=== PATIENT | male | born 1940 | race Caucasian/White ===

== ENCOUNTER → 2016-09-14 | Outpatient (REF) ==
[~2016-09-14] MED LIST: AMLOPIDINE; ASPIR-LOW81 MG PO; BENAZEPRIL; CIALIS20 MG PO; CIPRO 500MG TA500 MG PO; COLACE 100100 MG/CAP PO; DITROPAN 5MG TAB5 MG PO; GLUCOPHAGE500 MG PO; GLUCOSAMINE & C1 CA1 PO; HCTZ 25MG25 MG PO; INSULIN HUMA100 U/ML IJ; LASIX 40MG TABL40 MG PO; LEVAQUIN 750MG750 M1 PO; LEVOTHYROXINE0.05 M1 PO; LIPITOR 40MG TA40 MG PO; LOTENSIN40 MG PO; MOTRIN 600600 MG/TAB PO; NORCO 325 MG-51 TAB; NORVASC 10MG10 MG PO; OMEGA-3 FISH1200 MG PO; PERCOCET 325 MG1 TA2 PO; PROSCAR 5MG5 MG PO; PYRIDIUM 100MG100 MG; PYRIDIUM 100MG100 MG PO; SKELAXIN800 MG PO; SYNTHROID0.1 MG/TAB PO; VITAMIN B11000 MCG/M IM
== END ==
LOC: ZLAB.WCH 15:50
DX: Z01.89 Encounter for other specified special examinations (principal)

== ENCOUNTER → 2016-10-28 | Outpatient (REF) | LOC: ZLAB.WCH 10:10 | DX: Z01.89 Encounter for other specified special examinations (principal) ==

== ENCOUNTER → 2017-09-23 | Outpatient (REF) ==
[2017-09-23 19:18] LABS: THYROID STIMULATING HORMONE 1.84 uIU/mL (0.465-4.680)
== END ==
LOC: ZLAB.WCH 18:16
PROVIDERS: Family Medicine
DX: Z01.89 Encounter for other specified special examinations (principal)

== ENCOUNTER → 2017-09-29 | Outpatient (CLI) | payer MEDICARE, OTHER | LOC: COL.VAS 09-28 11:15 | DX: I08.0 Rheumatic disorders of both mitral and aortic valves (principal); I31.3 Pericardial effusion (noninflammatory) ==

== ENCOUNTER → 2018-01-26 | Outpatient (REF) | LOC: ZLAB.WCH 14:27 | DX: Z01.89 Encounter for other specified special examinations (principal) ==

== ENCOUNTER → 2018-04-06 | Outpatient (REF) ==
[2018-04-06 10:33] LABS: COLLECTION METHOD CATHETER
[2018-04-06 10:42] LABS: MUCOUS Present /lpf; PH 9 (5-8); SQUAMOUS EPITHELIAL None Seen /hpf; URINE APPEARANCE Hazy; URINE BACTERIA Rare /hpf; URINE BILIRUBIN Negative (NEGATIVE); URINE BLOOD 1+ (NEGATIVE); URINE COLOR Yellow; URINE GLUCOSE 2+ (NEGATIVE); URINE KETONE Negative (NEGATIVE); URINE LEUKOCYTE ESTERASE 3+ (NEGATIVE); URINE NITRATE Negative (NEGATIVE); URINE PROTEIN(semi-quant) 2+ (NEGATIVE); URINE UROBILINOGEN Negative (NEGATIVE); URINE WBC 20-50 /hpf
== END ==
LOC: ZLAB.STJ 10:32
PROVIDERS: Family Medicine
DX: Z01.89 Encounter for other specified special examinations (principal)

== ENCOUNTER → 2018-04-20 | Outpatient (CLI) | payer MEDICARE, OTHER ==
[2018-04-20 10:42] LABS: PH 9 (5-8); SQUAMOUS EPITHELIAL None Seen /hpf; URINE APPEARANCE Hazy; URINE BACTERIA None Seen /hpf; URINE BILIRUBIN Negative (NEGATIVE); URINE BLOOD 1+ (NEGATIVE); URINE COLOR Yellow; URINE GLUCOSE 3+ (NEGATIVE); URINE KETONE Negative (NEGATIVE); URINE LEUKOCYTE ESTERASE 2+ (NEGATIVE); URINE NITRATE Negative (NEGATIVE); URINE PROTEIN(semi-quant) 2+ (NEGATIVE); URINE UROBILINOGEN Negative (NEGATIVE); URINE WBC >50 /hpf
[2018-04-20 10:44] LABS: COLLECTION METHOD CLEAN CATCH
== END ==
LOC: ZLAB.WCH 10:13 → ZLAB.STJ 10:13
PROVIDERS: Family Medicine
DX: Z01.89 Encounter for other specified special examinations (principal)

== ENCOUNTER → 2018-04-22 | Outpatient (CLI) | payer MEDICARE, OTHER ==
[2018-04-22 17:49] LABS: COLLECTION METHOD CATHETER
[2018-04-22 17:59] LABS: BUDDING YEAST Present /hpf; PH 9 (5-8); SQUAMOUS EPITHELIAL 0-2 /hpf; URINE APPEARANCE Cloudy; URINE BACTERIA Rare /hpf; URINE BILIRUBIN Negative (NEGATIVE); URINE BLOOD 1+ (NEGATIVE); URINE COLOR Yellow; URINE GLUCOSE 3+ (NEGATIVE); URINE KETONE Negative (NEGATIVE); URINE LEUKOCYTE ESTERASE 3+ (NEGATIVE); URINE NITRATE Negative (NEGATIVE); URINE PROTEIN(semi-quant) 2+ (NEGATIVE); URINE UROBILINOGEN Negative (NEGATIVE); URINE WBC >50 /hpf
== END ==
LOC: ZLAB.STJ 17:28
PROVIDERS: Family Medicine
DX: Z99.2 Dependence on renal dialysis (principal)

== ENCOUNTER 2018-05-30 11:58 | Outpatient (CLI) | payer MEDICARE, OTHER ==
[2018-05-30] VITALS (7 sets, daily range): BP systolic 135–164; BP diastolic 54–67; PULSE 57–89; TEMP 97.9
[~2018-05-30] VITALS: Ht 175.4 cm; Wt 94.9 kg
[2018-05-30 13:46] LABS: INR 1.5 (0.8-3.0); PROTHROMBIN TIME 17.2 SECONDS (9.7-12.8)
[2018-05-30] MEDS ORDERED: COUMADIN 6MG6 MG/TAB PO (13:50)
[2018-05-30] MEDS ORDERED: PROTONIX40 MG/Pack PO (14:09)
[2018-05-30] MEDS ORDERED: TOPROL XL 25MG25 MG PO (14:10)
[2018-05-30] MEDS ORDERED: PHOS LO (14:16)
[2018-05-30] MEDS ORDERED: LEVEMIR FLEX100 U/ML SQ ×2 (14:16→14:17)
[2018-05-30] MEDS ORDERED: NOVOLOG FLEX100 U/ML SQ ×2 (14:18→14:19)
== END 2018-05-30 18:00 ==
LOC: COL.CAR 11:58
PROVIDERS: Specialist
DX: I87.1 Compression of vein (principal); I12.0 Hypertensive chronic kidney disease with stage 5 chronic kidney disease or end stage renal disease; E11.22 Type 2 diabetes mellitus with diabetic chronic kidney disease; N18.6 End stage renal disease; Z99.2 Dependence on renal dialysis; Z79.01 Long term (current) use of anticoagulants; Z86.73 Personal history of transient ischemic attack (TIA), and cerebral infarction without residual deficits
CPT/HCPCS: J2250; J3010; Q9967

== ENCOUNTER 2018-06-15 12:21 | Inpatient (IN) | payer MEDICARE, OTHER ==
[2018-06-15] VITALS (9 sets, daily range): BP systolic 117–140; BP diastolic 53–65; PULSE 67–83; TEMP 98.6
[~2018-06-15] VITALS: Ht 175.3 cm; Wt 92.0 kg
[~2018-06-15 12:21] MED LIST changes: +COUMADIN 6MG6 MG/TAB PO; +LEVEMIR FLEX100 U/ML SQ; +LOPRESSOR 225 MG/TAB PO; +NOVOLOG FLEX100 U/ML SQ; +PHOS LO; +PROTONIX40 MG/Pack PO
[2018-06-15 13:12] LABS: BASO % 0.4 % (0.0-2.0); EOS # 0.2 (0.0-0.7); GRAN # 5.5 (1.4-6.5); GRAN % 75.1 % (42.2-75.2); HEMOGLOBIN 11.3 g/dl (13.5-18.0); LYMPH # 0.9 (1.2-3.4); LYMPH % 12.5 % (20.0-51.0); MEAN CELL VOLUME 93 fl (80.0-100.0); MEAN CORPUSCULAR HEMOGLOBIN 31 pg (27.0-31.0); MEAN CORPUSCULAR HGB CONC 33 g/dl (33.0-37.0); MEAN PLATELET VOLUME 10.1 fl (7.4-10.4); MONO # 0.6 (0.1-0.6); MONO % 8.4 % (1.7-9.3); PLATELET COUNT 281 K/mm3 (130-400); REDCELL DISTRIBUTION WIDTH-CV 15.6 % (11.5-14.5)
[2018-06-15 13:15] LABS: HEMATOCRIT 34.3 % (42.0-52.0)
[2018-06-15 13:18] LABS: INR 1.8 (0.8-3.0); PROTHROMBIN TIME 20.2 SECONDS (9.7-12.8)
[2018-06-15 13:22] LABS: ALBUMIN 3.9 gm/dL (3.5-5.0); BILIRUBIN,TOTAL 0.6 mg/dL (0.0-1.0); POTASSIUM 3.7 mmol/L (3.4-5.0); TOTAL PROTEIN 7.5 gm/dL (6.4-8.2)
[2018-06-15 13:23] LABS: CREATININE, serum 7.39 mg/dL (0.66-1.25)
[2018-06-16 00:24] VITALS: BP 114/49; PULSE 64; TEMP 98.5
[2018-06-16 07:32] LABS: BASO % 0.3 % (0.0-2.0); EOS # 0.4 (0.0-0.7); EOS % 5.7 % (0-4.0); GRAN # 4.9 (1.4-6.5); GRAN % 77.9 % (42.2-75.2); LYMPH # 0.6 (1.2-3.4); LYMPH % 9.5 % (20.0-51.0); MEAN CELL VOLUME 96 fl (80.0-100.0); MEAN CORPUSCULAR HGB CONC 32 g/dl (33.0-37.0); MEAN PLATELET VOLUME 10.6 fl (7.4-10.4); MONO # 0.4 (0.1-0.6); PLATELET COUNT 245 K/mm3 (130-400); RED BLOOD COUNT 2.98 M/mm3 (4.20-5.60); REDCELL DISTRIBUTION WIDTH-CV 15.8 % (11.5-14.5)
[2018-06-16 07:38] LABS: HEMATOCRIT 28.5 % (42.0-52.0); HEMOGLOBIN 9.1 g/dl (13.5-18.0); MEAN CORPUSCULAR HEMOGLOBIN 31 pg (27.0-31.0)
[2018-06-16 07:55] VITALS: BP 105/45; PULSE 66; TEMP 97.6
[2018-06-16 08:03] LABS: CALCIUM 8.4 mg/dL (8.4-10.2); POTASSIUM 4.5 mmol/L (3.4-5.0)
[2018-06-16 08:10] LABS: CREATININE, serum 8.27 mg/dL (0.66-1.25)
[2018-06-16 08:33] LABS: THYROID STIMULATING HORMONE 3.28 uIU/mL (0.465-4.680)
[2018-06-16 12:21] VITALS: BP 96/66; PULSE 65; TEMP 97.6
[2018-06-16 16:47] VITALS: BP 95/46; PULSE 81; TEMP 98.2
[2018-06-16 19:09] VITALS: BP 115/86; PULSE 91; TEMP 97.6
[2018-06-17] VITALS (11 sets, daily range): BP systolic 125–156; BP diastolic 51–86; PULSE 82–103; TEMP 98–98.6
[2018-06-17 07:45] LABS: CALCIUM 8.6 mg/dL (8.4-10.2); POTASSIUM 4.3 mmol/L (3.4-5.0)
[2018-06-17 07:46] LABS: BASO % 0.4 % (0.0-2.0); EOS # 0.2 (0.0-0.7); EOS % 4.5 % (0-4.0); GRAN # 3.9 (1.4-6.5); GRAN % 73.2 % (42.2-75.2); LYMPH # 0.6 (1.2-3.4); LYMPH % 10.7 % (20.0-51.0); MEAN CELL VOLUME 98 fl (80.0-100.0); MEAN CORPUSCULAR HGB CONC 31 g/dl (33.0-37.0); MEAN PLATELET VOLUME 10.2 fl (7.4-10.4); MONO # 0.6 (0.1-0.6); MONO % 10.3 % (1.7-9.3); PLATELET COUNT 218 K/mm3 (130-400); RED BLOOD COUNT 2.54 M/mm3 (4.20-5.60); REDCELL DISTRIBUTION WIDTH-CV 16.2 % (11.5-14.5)
[2018-06-17 07:50] LABS: CREATININE, serum 6.13 mg/dL (0.66-1.25)
[2018-06-17 07:52] LABS: HEMATOCRIT 24.9 % (42.0-52.0); HEMOGLOBIN 7.7 g/dl (13.5-18.0); MEAN CORPUSCULAR HEMOGLOBIN 30 pg (27.0-31.0)
[2018-06-17 08:04] LABS: INR 4.3 (0.8-3.0)
[2018-06-17 08:12] LABS: PROTHROMBIN TIME 49.4 SECONDS (9.7-12.8)
[2018-06-18 04:06] VITALS: BP 132/58; PULSE 105; TEMP 100.1
[2018-06-18 08:01] VITALS: BP 139/58; PULSE 96; TEMP 98.6
[2018-06-18 08:06] LABS: BASO % 0.3 % (0.0-2.0); EOS # 0.2 (0.0-0.7); EOS % 3.5 % (0-4.0); GRAN # 4.9 (1.4-6.5); GRAN % 77.3 % (42.2-75.2); LYMPH # 0.5 (1.2-3.4); LYMPH % 8.1 % (20.0-51.0); MEAN CELL VOLUME 98 fl (80.0-100.0); MEAN CORPUSCULAR HGB CONC 31 g/dl (33.0-37.0); MEAN PLATELET VOLUME 10.3 fl (7.4-10.4); MONO # 0.6 (0.1-0.6); PLATELET COUNT 211 K/mm3 (130-400); RED BLOOD COUNT 2.35 M/mm3 (4.20-5.60); REDCELL DISTRIBUTION WIDTH-CV 16.4 % (11.5-14.5)
[2018-06-18 08:15] LABS: HEMOGLOBIN 7.2 g/dl (13.5-18.0); MEAN CORPUSCULAR HEMOGLOBIN 31 pg (27.0-31.0)
[2018-06-18 08:17] LABS: CALCIUM 8.6 mg/dL (8.4-10.2); POTASSIUM 4.4 mmol/L (3.4-5.0)
[2018-06-18 08:24] LABS: INR 2.4 (0.8-3.0); PROTHROMBIN TIME 27.3 SECONDS (9.7-12.8)
[2018-06-18 08:25] LABS: CREATININE, serum 7.91 mg/dL (0.66-1.25)
[2018-06-18 11:23] VITALS: BP 139/58; PULSE 96; TEMP 98.6
[2018-06-18] MEDS ORDERED: PERCOCET 325 MG1 TA2 PO (11:55)
== END 2018-06-18 12:30 | DRG 480 ==
LOC: COL.ER 12:21 → SURG 13:35
PROVIDERS: Emergency Medicine; Hospitalist; Nurse Practitioner Family; Orthopaedic Surgery
PROC: 0QH736Z Insertion of Intramedullary Internal Fixation Device into Left Upper Femur, Percutaneous Approach (ICD-10-PCS; principal; 2018-06-15 16:30)
PROC: 5A1D70Z Performance of Urinary Filtration, Intermittent, Less than 6 Hours Per Day (ICD-10-PCS; 2018-06-16)
DX: S72.142A Displaced intertrochanteric fracture of left femur, initial encounter for closed fracture (principal); N18.6 End stage renal disease; I12.0 Hypertensive chronic kidney disease with stage 5 chronic kidney disease or end stage renal disease; F05 Delirium due to known physiological condition; W18.30XA Fall on same level, unspecified, initial encounter; Z99.2 Dependence on renal dialysis; E78.5 Hyperlipidemia, unspecified; Z85.51 Personal history of malignant neoplasm of bladder; Z86.73 Personal history of transient ischemic attack (TIA), and cerebral infarction without residual deficits; E11.22 Type 2 diabetes mellitus with diabetic chronic kidney disease; Z79.4 Long term (current) use of insulin; D63.1 Anemia in chronic kidney disease; F03.90 Unspecified dementia, unspecified severity, without behavioral disturbance, psychotic disturbance, mood disturbance, and anxiety
CPT/HCPCS: 99222-AI; 99232-AI; 99239; A4314; A9284; C1713; J0690; J1815; J2250; J2270; J2704; J2795; J3010; J7070

== ENCOUNTER 2018-06-20 11:41 | Inpatient (IN) | payer MEDICARE, OTHER ==
[~2018-06-20] VITALS: Ht 175.3 cm; Wt 98.8 kg
[~2018-06-20 11:41] MED LIST changes: -LEXAPRO 10MG10 MG PO; -NORVASC2.5 MG PO
[2018-06-20 12:24] LABS: BASO % 0.4 % (0.0-2.0); EOS # 0.4 (0.0-0.7); EOS % 5.3 % (0-4.0); GRAN % 74.5 % (42.2-75.2); HEMATOCRIT 24.4 % (42.0-52.0); HEMOGLOBIN 7.8 g/dl (13.5-18.0); LYMPH # 0.7 (1.2-3.4); LYMPH % 8.8 % (20.0-51.0); MEAN CELL VOLUME 95 fl (80.0-100.0); MEAN CORPUSCULAR HEMOGLOBIN 30 pg (27.0-31.0); MEAN CORPUSCULAR HGB CONC 32 g/dl (33.0-37.0); MEAN PLATELET VOLUME 9.8 fl (7.4-10.4); MONO # 0.8 (0.1-0.6); MONO % 10.4 % (1.7-9.3); PLATELET COUNT 250 K/mm3 (130-400); RED BLOOD COUNT 2.57 M/mm3 (4.20-5.60); REDCELL DISTRIBUTION WIDTH-CV 16.4 % (11.5-14.5)
[2018-06-20 12:31] LABS: PARTIAL THROMBOPLASTIN TIME 46.6 SECONDS (26.0-37.0)
[2018-06-20 12:34] LABS: PROTHROMBIN TIME 34.4 SECONDS (9.7-12.8)
[2018-06-20 12:35] LABS: ALANINE AMINOTRANSFERASE 15 U/L (21-72); ALBUMIN 3.2 gm/dL (3.5-5.0); ALKALINE PHOSPHATASE 113 U/L (50-136); ANION GAP 9 mmol/L (7-16); AST,SGOT 27 U/L (15-37); BILIRUBIN,TOTAL 0.4 mg/dL (0.0-1.0); BLOOD UREA NITROGEN 77 mg/dL (9-20); CALCIUM 9.2 mg/dL (8.4-10.2); CARBON DIOXIDE 25 mmol/L (22-30); CHLORIDE 100 mmol/L (98-107); GLUCOSE 55 mg/dL (74-106); POTASSIUM 4.6 mmol/L (3.4-5.0); SODIUM 134 mmol/L (137-145); TOTAL PROTEIN 6.6 gm/dL (6.4-8.2)
[2018-06-20 12:39] LABS: ACETAMINOPHEN < 10 ug/mL (10-30); CREATININE, serum 11.11 mg/dL (0.66-1.25); SALICYLATE < 1.0 mg/dL
[2018-06-20] MEDS ORDERED: NORVASC 10MG10 MG PO (14:51)
[2018-06-20 19:14] VITALS: BP 140/60; PULSE 76; TEMP 97.9
[2018-06-20 22:35] VITALS: BP 124/57; PULSE 81; TEMP 98.1
[2018-06-21 05:37] VITALS: BP 147/80; PULSE 74; TEMP 98.2
[2018-06-21 08:00] VITALS: BP 148/55; PULSE 86; TEMP 99
[2018-06-21 08:17] LABS: BASO % 0.5 % (0.0-2.0); EOS # 0.3 (0.0-0.7); EOS % 4.9 % (0-4.0); GRAN # 4.1 (1.4-6.5); GRAN % 69.3 % (42.2-75.2); LYMPH # 0.7 (1.2-3.4); LYMPH % 11.1 % (20.0-51.0); MEAN CELL VOLUME 97 fl (80.0-100.0); MEAN CORPUSCULAR HGB CONC 32 g/dl (33.0-37.0); MEAN PLATELET VOLUME 9.7 fl (7.4-10.4); MONO # 0.8 (0.1-0.6); MONO % 13.3 % (1.7-9.3); PLATELET COUNT 245 K/mm3 (130-400); RED BLOOD COUNT 2.55 M/mm3 (4.20-5.60); REDCELL DISTRIBUTION WIDTH-CV 16.3 % (11.5-14.5)
[2018-06-21 08:20] LABS: HEMATOCRIT 24.8 % (42.0-52.0); HEMOGLOBIN 7.8 g/dl (13.5-18.0); MEAN CORPUSCULAR HEMOGLOBIN 31 pg (27.0-31.0)
[2018-06-21 08:24] LABS: INR 2.9 (0.8-3.0); PROTHROMBIN TIME 33.5 SECONDS (9.7-12.8)
[2018-06-21 08:25] LABS: ALBUMIN 3.2 gm/dL (3.5-5.0); CALCIUM 8.8 mg/dL (8.4-10.2); PHOSPHOROUS 5.1 mg/dL (2.5-4.5); POTASSIUM 4.9 mmol/L (3.4-5.0)
[2018-06-21 08:26] LABS: CREATININE, serum 7.31 mg/dL (0.66-1.25)
[2018-06-21 12:53] VITALS: BP 131/56; PULSE 76; TEMP 97.8
[2018-06-21 15:45] VITALS: BP 127/52; PULSE 76; TEMP 98
[2018-06-21 19:36] VITALS: BP 156/61; PULSE 80; TEMP 98.3
[2018-06-22 04:51] VITALS: BP 128/53; PULSE 70; TEMP 97.6
[2018-06-22 06:52] LABS: INR 3.6 (0.8-3.0); PROTHROMBIN TIME 41.4 SECONDS (9.7-12.8)
[2018-06-22 06:56] LABS: BASO % 0.5 % (0.0-2.0); EOS # 0.4 (0.0-0.7); EOS % 6.2 % (0-4.0); GRAN # 4.3 (1.4-6.5); GRAN % 67.9 % (42.2-75.2); LYMPH # 0.8 (1.2-3.4); LYMPH % 12.8 % (20.0-51.0); MEAN CELL VOLUME 97 fl (80.0-100.0); MEAN CORPUSCULAR HGB CONC 32 g/dl (33.0-37.0); MEAN PLATELET VOLUME 9.9 fl (7.4-10.4); MONO # 0.8 (0.1-0.6); PLATELET COUNT 294 K/mm3 (130-400); RED BLOOD COUNT 2.56 M/mm3 (4.20-5.60); REDCELL DISTRIBUTION WIDTH-CV 16.1 % (11.5-14.5)
[2018-06-22 06:58] LABS: HEMATOCRIT 24.8 % (42.0-52.0); HEMOGLOBIN 7.8 g/dl (13.5-18.0); MEAN CORPUSCULAR HEMOGLOBIN 30 pg (27.0-31.0)
[2018-06-22 07:21] VITALS: BP 139/53; PULSE 72; TEMP 97.9
[2018-06-22 07:22] LABS: ALBUMIN 3.3 gm/dL (3.5-5.0); CALCIUM 9.6 mg/dL (8.4-10.2); PHOSPHOROUS 6.2 mg/dL (2.5-4.5); POTASSIUM 5.1 mmol/L (3.4-5.0)
[2018-06-22 07:30] LABS: CREATININE, serum 8.51 mg/dL (0.66-1.25)
[2018-06-22 11:28] VITALS: BP 125/58; PULSE 89
[2018-06-22 17:19] VITALS: BP 132/55; PULSE 82; TEMP 97.7
[2018-06-22 20:37] VITALS: BP 133/54; PULSE 82; TEMP 97.9
[2018-06-22 23:22] VITALS: BP 135/57; PULSE 75; TEMP 98.1
[2018-06-23 04:06] VITALS: BP 140/68; PULSE 81; TEMP 97.7
[2018-06-23 06:11] LABS: BASO % 0.5 % (0.0-2.0); EOS # 0.4 (0.0-0.7); EOS % 5.8 % (0-4.0); GRAN # 4.1 (1.4-6.5); GRAN % 67.5 % (42.2-75.2); LYMPH # 0.9 (1.2-3.4); LYMPH % 14.6 % (20.0-51.0); MEAN CELL VOLUME 98 fl (80.0-100.0); MEAN CORPUSCULAR HGB CONC 31 g/dl (33.0-37.0); MEAN PLATELET VOLUME 9.8 fl (7.4-10.4); MONO # 0.7 (0.1-0.6); MONO % 11.1 % (1.7-9.3); PLATELET COUNT 284 K/mm3 (130-400); RED BLOOD COUNT 2.38 M/mm3 (4.20-5.60); REDCELL DISTRIBUTION WIDTH-CV 15.9 % (11.5-14.5)
[2018-06-23 06:21] LABS: HEMATOCRIT 23.3 % (42.0-52.0); HEMOGLOBIN 7.2 g/dl (13.5-18.0); MEAN CORPUSCULAR HEMOGLOBIN 30 pg (27.0-31.0)
[2018-06-23 06:28] LABS: ALBUMIN 3.2 gm/dL (3.5-5.0); CALCIUM 9.2 mg/dL (8.4-10.2); PHOSPHOROUS 4.9 mg/dL (2.5-4.5); POTASSIUM 4.6 mmol/L (3.4-5.0)
[2018-06-23 06:30] LABS: INR 5.1 (0.8-3.0); PROTHROMBIN TIME 58.2 SECONDS (9.7-12.8)
[2018-06-23 06:55] LABS: CREATININE, serum 6.34 mg/dL (0.66-1.25)
[2018-06-23 07:05] VITALS: BP 136/55; PULSE 78; TEMP 97.5
[2018-06-23 11:14] VITALS: BP 116/47; PULSE 74; TEMP 98.2
[2018-06-23 15:11] VITALS: BP 122/43; PULSE 72; TEMP 97.7
[2018-06-23 19:23] VITALS: BP 156/72; PULSE 76; TEMP 97.6
[2018-06-23 23:32] VITALS: BP 149/55; PULSE 67; TEMP 97.9
[2018-06-24 03:22] VITALS: BP 165/53; PULSE 71; TEMP 98.3
[2018-06-24 08:00] VITALS: BP 117/40; PULSE 71; TEMP 97.8
[2018-06-24 08:43] LABS: BASO % 0.4 % (0.0-2.0); EOS # 0.4 (0.0-0.7); EOS % 5.1 % (0-4.0); GRAN # 5.4 (1.4-6.5); GRAN % 74.2 % (42.2-75.2); LYMPH # 0.9 (1.2-3.4); MEAN CELL VOLUME 96 fl (80.0-100.0); MEAN CORPUSCULAR HGB CONC 32 g/dl (33.0-37.0); MEAN PLATELET VOLUME 9.6 fl (7.4-10.4); MONO # 0.6 (0.1-0.6); MONO % 7.9 % (1.7-9.3); PLATELET COUNT 296 K/mm3 (130-400); RED BLOOD COUNT 2.43 M/mm3 (4.20-5.60); REDCELL DISTRIBUTION WIDTH-CV 15.6 % (11.5-14.5)
[2018-06-24 08:45] LABS: HEMATOCRIT 23.4 % (42.0-52.0); HEMOGLOBIN 7.4 g/dl (13.5-18.0); MEAN CORPUSCULAR HEMOGLOBIN 30 pg (27.0-31.0)
[2018-06-24 08:52] LABS: ALBUMIN 3.1 gm/dL (3.5-5.0); CALCIUM 9.1 mg/dL (8.4-10.2); PHOSPHOROUS 5.9 mg/dL (2.5-4.5); POTASSIUM 5.4 mmol/L (3.4-5.0)
[2018-06-24 09:13] LABS: CREATININE, serum 8.53 mg/dL (0.66-1.25)
[2018-06-24 09:23] LABS: PROTHROMBIN TIME 62.4 SECONDS (9.7-12.8)
[2018-06-24 09:24] LABS: INR 5.5 (0.8-3.0)
[2018-06-24 12:24] VITALS: BP 135/51; PULSE 91; TEMP 98.2
[2018-06-24 15:57] VITALS: BP 129/49; PULSE 56; TEMP 98.6
[2018-06-24 18:55] VITALS: BP 131/52; PULSE 85; TEMP 98.3
[2018-06-24 23:47] VITALS: BP 112/48; PULSE 78
[2018-06-25 04:10] VITALS: BP 151/57; PULSE 58; TEMP 98.6
[2018-06-25 06:58] LABS: BASO % 0.5 % (0.0-2.0); EOS # 0.4 (0.0-0.7); EOS % 6.6 % (0-4.0); GRAN % 67.9 % (42.2-75.2); LYMPH # 0.9 (1.2-3.4); LYMPH % 15.1 % (20.0-51.0); MEAN CELL VOLUME 98 fl (80.0-100.0); MEAN CORPUSCULAR HGB CONC 31 g/dl (33.0-37.0); MEAN PLATELET VOLUME 9.3 fl (7.4-10.4); MONO # 0.5 (0.1-0.6); MONO % 9.2 % (1.7-9.3); PLATELET COUNT 295 K/mm3 (130-400); RED BLOOD COUNT 2.49 M/mm3 (4.20-5.60); REDCELL DISTRIBUTION WIDTH-CV 15.6 % (11.5-14.5)
[2018-06-25 06:59] LABS: HEMATOCRIT 24.4 % (42.0-52.0); HEMOGLOBIN 7.5 g/dl (13.5-18.0); MEAN CORPUSCULAR HEMOGLOBIN 30 pg (27.0-31.0)
[2018-06-25 07:09] LABS: INR 4.2 (0.8-3.0)
[2018-06-25 07:23] LABS: ALBUMIN 3.2 gm/dL (3.5-5.0); CALCIUM 9.2 mg/dL (8.4-10.2); PHOSPHOROUS 4.2 mg/dL (2.5-4.5)
[2018-06-25 07:26] LABS: CREATININE, serum 6.34 mg/dL (0.66-1.25)
[2018-06-25 07:32] VITALS: BP 147/52; PULSE 72; TEMP 98.2
[2018-06-25 07:59] LABS: PROTHROMBIN TIME 48.3 SECONDS (9.7-12.8)
[2018-06-25 11:49] VITALS: BP 138/49; PULSE 68; TEMP 98.2
[2018-06-25 16:12] VITALS: BP 135/47; PULSE 71; TEMP 98.3
[2018-06-25 22:45] VITALS: BP 153/57; PULSE 78; TEMP 98.4
[2018-06-26] VITALS (10 sets, daily range): BP systolic 102–141; BP diastolic 35–61; PULSE 66–73; TEMP 98.6–98.8
[2018-06-26 07:24] LABS: BASO % 0.4 % (0.0-2.0); EOS # 0.4 (0.0-0.7); EOS % 5.5 % (0-4.0); GRAN # 6.1 (1.4-6.5); GRAN % 76.4 % (42.2-75.2); LYMPH # 0.8 (1.2-3.4); LYMPH % 9.4 % (20.0-51.0); MEAN CORPUSCULAR HGB CONC 32 g/dl (33.0-37.0); MEAN PLATELET VOLUME 9.4 fl (7.4-10.4); MONO # 0.6 (0.1-0.6); MONO % 7.9 % (1.7-9.3); PLATELET COUNT 360 K/mm3 (130-400); RED BLOOD COUNT 2.58 M/mm3 (4.20-5.60); REDCELL DISTRIBUTION WIDTH-CV 15.7 % (11.5-14.5)
[2018-06-26 07:26] LABS: HEMATOCRIT 24.1 % (42.0-52.0); HEMOGLOBIN 7.8 g/dl (13.5-18.0); MEAN CELL VOLUME 93 fl (80.0-100.0); MEAN CORPUSCULAR HEMOGLOBIN 30 pg (27.0-31.0)
[2018-06-26 07:47] LABS: INR 3.6 (0.8-3.0); PROTHROMBIN TIME 40.7 SECONDS (9.7-12.8)
[2018-06-26 07:48] LABS: ALBUMIN 3.5 gm/dL (3.5-5.0); POTASSIUM 5.3 mmol/L (3.4-5.0)
[2018-06-26 07:53] LABS: CREATININE, serum 8.15 mg/dL (0.66-1.25)
[2018-06-26] MEDS ORDERED: NORVASC2.5 MG PO (12:04)
[2018-06-26] MEDS ORDERED: COUMADIN 6MG6 MG/TAB PO (12:04)
[2018-06-26] MEDS ORDERED: LEXAPRO 10MG10 MG PO (12:05)
== END 2018-06-26 15:33 | DRG 947 ==
LOC: COL.ER 11:41 → ICU 13:52 → MEDICAL 13:52
PROVIDERS: Internal Medicine Nephrology; Nurse Practitioner
PROC: 5A1D70Z Performance of Urinary Filtration, Intermittent, Less than 6 Hours Per Day (ICD-10-PCS; principal; 2018-06-20)
PROC: 5A1D70Z Performance of Urinary Filtration, Intermittent, Less than 6 Hours Per Day (ICD-10-PCS; 2018-06-22)
PROC: 5A1D70Z Performance of Urinary Filtration, Intermittent, Less than 6 Hours Per Day (ICD-10-PCS; 2018-06-24)
PROC: 5A1D70Z Performance of Urinary Filtration, Intermittent, Less than 6 Hours Per Day (ICD-10-PCS; 2018-06-25)
PROC: 5A1D70Z Performance of Urinary Filtration, Intermittent, Less than 6 Hours Per Day (ICD-10-PCS; 2018-06-26)
DX: R41.82 Altered mental status, unspecified (principal); N18.6 End stage renal disease; I12.0 Hypertensive chronic kidney disease with stage 5 chronic kidney disease or end stage renal disease; T40.2X5A Adverse effect of other opioids, initial encounter; I95.9 Hypotension, unspecified; E11.22 Type 2 diabetes mellitus with diabetic chronic kidney disease; Z99.2 Dependence on renal dialysis; E78.5 Hyperlipidemia, unspecified; Z79.01 Long term (current) use of anticoagulants; D64.9 Anemia, unspecified; I95.3 Hypotension of hemodialysis; S72.142D Displaced intertrochanteric fracture of left femur, subsequent encounter for closed fracture with routine healing; F32.9 Major depressive disorder, single episode, unspecified; Z79.4 Long term (current) use of insulin
CPT/HCPCS: J1815; P9016

== ENCOUNTER → 2018-06-20 | Outpatient (CLI) | payer MEDICARE, OTHER ==
[~2018-06-20] MED LIST changes: +LEXAPRO 10MG10 MG PO; +NORVASC2.5 MG PO
[2018-06-20 10:02] LABS: BASO % 0.4 % (0.0-2.0); EOS # 0.4 (0.0-0.7); EOS % 5.8 % (0-4.0); GRAN # 5.3 (1.4-6.5); LYMPH # 0.6 (1.2-3.4); LYMPH % 8.3 % (20.0-51.0); MEAN CELL VOLUME 96 fl (80.0-100.0); MEAN CORPUSCULAR HGB CONC 32 g/dl (33.0-37.0); MEAN PLATELET VOLUME 10.5 fl (7.4-10.4); MONO # 0.7 (0.1-0.6); MONO % 9.7 % (1.7-9.3); PLATELET COUNT 252 K/mm3 (130-400); RED BLOOD COUNT 2.45 M/mm3 (4.20-5.60); REDCELL DISTRIBUTION WIDTH-CV 16.4 % (11.5-14.5)
[2018-06-20 10:04] LABS: HEMATOCRIT 23.4 % (42.0-52.0); HEMOGLOBIN 7.5 g/dl (13.5-18.0); MEAN CORPUSCULAR HEMOGLOBIN 31 pg (27.0-31.0)
[2018-06-20 10:16] LABS: INR 2.9 (0.8-3.0); PROTHROMBIN TIME 33.1 SECONDS (9.7-12.8)
== END ==
LOC: ZCOL.LAB 09:48
PROVIDERS: Family Medicine
DX: I63.9 Cerebral infarction, unspecified (principal); E11.22 Type 2 diabetes mellitus with diabetic chronic kidney disease

== ENCOUNTER → 2018-07-31 | Outpatient (REF) ==
[~2018-07-31] MED LIST changes: +LEXAPRO 10MG10 MG PO; +NORVASC2.5 MG PO
== END ==
LOC: ZLAB.STJ 15:21
DX: R79.1 Abnormal coagulation profile (principal)

== ENCOUNTER → 2018-09-08 | Outpatient (CLI) | payer MEDICARE, OTHER | LOC: ZLAB.STJ 10:35 | DX: E03.9 Hypothyroidism, unspecified (principal) ==

== ENCOUNTER 2019-01-25 20:39 | Inpatient (IN) | payer MEDICARE, OTHER ==
[~2019-01-25] VITALS: Ht 172.7 cm; Wt 94.5 kg
[2019-01-25 23:09] VITALS: BP 161/74; PULSE 71; TEMP 98.3
--- NOTE | 2019-01-25 23:09 | NUR ---
RECIEVED PATIENT FROM ED PER CART FOR FRACTURED RT HIP. IS ALERT. SPOUSE AT BEDSIDE. MOVED FROM CART TO BED WITH 4 ASSIST AND SLIDE BOARD. REPORTS PAIN AND CRAMPING TO RIGHT LEG. HAS SL TO RIGHT WRIST WITHOUT REDNESS OR SWELLING. HAS RIGHT CHEST VASCATH AND LEFT FOREARM AV FISTULA. PATIENT IS FORGETFUL, DOES NOT KNOW WHERE HE IS, REORIENTS TEMPORARILY. BEDRAILS UP X3, BED ALARM ON.
--- NOTE | 2019-01-25 23:25 | NUR ---
INSERTED #16FR SUAREZ CATHETER AND PLACED TO BSD. IMMEDIATE RETURN OF YELLOW URINE. UA SENT TO LAB. HAS PURPLE BRUISE TO RIGHT ELBOW. ADMISSION QUESTIONS REVIEWED WITH SPOUSE. PATIENT REPORTS PAIN 6/10 TO RT LEG.
[2019-01-25] MEDS ORDERED: DIALYVITE 8001 TAB PO (23:56)
[2019-01-25] MEDS ORDERED: PROTONIX 40MG T40 MG PO (23:57)
[2019-01-25] MEDS ORDERED: VITAMIN C500 MG PO (23:57)
[2019-01-25] MEDS ORDERED: VELPHORO PO (23:58)
[2019-01-26] VITALS (10 sets, daily range): BP systolic 112–161; BP diastolic 52–74; PULSE 16–76; TEMP 97.5–98.3
[2019-01-26] MEDS ORDERED: COLACE 100100 MG/CAP PO
[2019-01-26] MEDS ORDERED: PERCOCET 325 MG1 TA2 PO
[2019-01-26] MEDS ORDERED: MIRALAX PA17 GM/Dose PO (00:01)
[2019-01-26] MEDS ORDERED: COUMADIN 6MG6 MG/TAB PO (00:03)
[2019-01-26] MEDS ORDERED: COUMADIN 3MG3 MG/TAB PO (00:03)
[2019-01-26 00:10] LABS: BASO % 0.4 % (0.0-2.0); EOS # 0.4 (0.0-0.7); EOS % 4.1 % (0-4.0); GRAN # 6.9 (1.4-6.5); GRAN % 76.1 % (42.2-75.2); HEMOGLOBIN 10.5 g/dl (13.5-18.0); MEAN CELL VOLUME 102 fl (80.0-100.0); MEAN CORPUSCULAR HEMOGLOBIN 32 pg (27.0-31.0); MEAN CORPUSCULAR HGB CONC 31 g/dl (33.0-37.0); MEAN PLATELET VOLUME 10.4 fl (7.4-10.4); MONO # 0.7 (0.1-0.6); MONO % 7.8 % (1.7-9.3); PLATELET COUNT 189 K/mm3 (130-400); RED BLOOD COUNT 3.31 M/mm3 (4.20-5.60); REDCELL DISTRIBUTION WIDTH-CV 15.2 % (11.5-14.5)
[2019-01-26 00:11] LABS: HEMATOCRIT 33.9 % (42.0-52.0)
[2019-01-26 00:12] LABS: INR 1.3 (0.8-3.0); PROTHROMBIN TIME 14.3 SECONDS (9.7-12.8)
[2019-01-26 00:17] LABS: ALBUMIN 3.6 gm/dL (3.5-5.0); BILIRUBIN,TOTAL 0.3 mg/dL (0.0-1.0); CALCIUM 9.1 mg/dL (8.4-10.2); POTASSIUM 4.7 mmol/L (3.4-5.0); TOTAL PROTEIN 6.8 gm/dL (6.4-8.2)
[2019-01-26 00:18] LABS: CREATININE, serum 6.79 (0.66-1.25)
[2019-01-26 00:24] LABS: PRE ALBUMIN 34.2 mg/dL (17.6-36.0)
--- NOTE | 2019-01-26 01:00 | NUR ---
MEDICATED WITH MORPHINE 4MG IV FOR PAIN TO RIGHT HIP. PLACED THIGH HIGH CHRISSIE AND SCD TO LEFT LEG. RT LEG ELEVATED ON A PILLOW. DR LAL WAS IN TO SEE PATIENT AT 0030.
[2019-01-26 01:06] LABS: COLLECTION METHOD CLEAN CATCH
[2019-01-26 01:33] LABS: PH 7 (5-8); SQUAMOUS EPITHELIAL None Seen /hpf; URINE APPEARANCE Hazy; URINE BACTERIA None Seen /hpf; URINE BILIRUBIN Negative (NEGATIVE); URINE BLOOD 1+ (NEGATIVE); URINE COLOR Yellow; URINE GLUCOSE 3+ (NEGATIVE); URINE KETONE Negative (NEGATIVE); URINE LEUKOCYTE ESTERASE Negative (NEGATIVE); URINE NITRATE Negative (NEGATIVE); URINE PROTEIN(semi-quant) 2+ (NEGATIVE); URINE RBC 20-50 /hpf; URINE UROBILINOGEN Negative (NEGATIVE)
--- NOTE | 2019-01-26 03:04 | NUR ---
Patient resting well after IV Morphine.
--- NOTE | 2019-01-26 05:50 | NUR ---
Complains of right hip pain 6/10 with movement. IV Morphine 4mg given at this time. Is alert to self, unsure of place and time, reorients easily. Sanchez drains well this shift.
[2019-01-26 06:02] LABS: BASO % 0.1 % (0.0-2.0); EOS # 0.3 (0.0-0.7); EOS % 4.9 % (0-4.0); GRAN # 4.7 (1.4-6.5); GRAN % 67.4 % (42.2-75.2); LYMPH # 1.1 (1.2-3.4); LYMPH % 15.8 % (20.0-51.0); MEAN CELL VOLUME 100 fl (80.0-100.0); MEAN CORPUSCULAR HGB CONC 32 g/dl (33.0-37.0); MEAN PLATELET VOLUME 10.4 fl (7.4-10.4); MONO # 0.8 (0.1-0.6); MONO % 11.1 % (1.7-9.3); PLATELET COUNT 167 K/mm3 (130-400); RED BLOOD COUNT 3.11 M/mm3 (4.20-5.60); REDCELL DISTRIBUTION WIDTH-CV 15.1 % (11.5-14.5)
[2019-01-26 06:05] LABS: HEMATOCRIT 31.2 % (42.0-52.0); HEMOGLOBIN 9.9 g/dl (13.5-18.0); MEAN CORPUSCULAR HEMOGLOBIN 32 pg (27.0-31.0)
[2019-01-26 06:15] LABS: CALCIUM 9.1 mg/dL (8.4-10.2); POTASSIUM 5.2 mmol/L (3.4-5.0)
[2019-01-26 06:20] LABS: CREATININE, serum 7.25 (0.66-1.25)
--- NOTE | 2019-01-26 07:04 | NUR ---
Report from Rebeca SANDS.
--- NOTE | 2019-01-26 07:06 | NUR ---
bedside report to Julian SANDS
--- NOTE | 2019-01-26 10:33 | NUR ---
PT TO CT FOR RIGHT HIP. RETURNED TO ROOM. PT TO DIALYSIS @ 1130.
--- NOTE | 2019-01-26 12:44 | NUR ---
PT TO DIALYSIS AT THIS TIME.
--- NOTE | 2019-01-26 15:26 | NUR ---
SWAPNIL met with the patient's , Kathy to discuss a discharge plans; the patient was in dialysis. The patient lives at [facility]. The patient receives full care at [facility]. The patient has advanced directives in the EMR, but does not have a DPOA-HC. Kathy requested a DPOA-HC form. SWAPNIL provided the form to the patient. Afton states the patient want to return to [facility] upon discharge. Mani signed the patient choice form. A copy was provided to the patient and the original was placed in the chart. SWAPNIL sent updates to Adriel at [facility]. SWAPNIL will continue to follow.
[2019-01-26 15:45] LABS: CALCIUM 8.7 mg/dL (8.4-10.2); CREATININE, serum 3.15 (0.66-1.25); POTASSIUM 3.7 mmol/L (3.4-5.0)
--- NOTE | 2019-01-26 18:56 | NUR ---
Report to Mariela SANDS.
--- NOTE | 2019-01-26 20:29 | NUR ---
Patient confused, and some conversation is not appropriate. When attempting to assess pain patient was not able to use a numeric scale. Patient gets scheduled pain medication. He stated he wants more pain medication "next week, but not this weekend." Ice to right hip. Denies any further needs. Bed alarm on.
[2019-01-27] VITALS: BP 125/53; PULSE 67; TEMP 98.3
--- NOTE | 2019-01-27 00:35 | NUR ---
Patient has rested well throughout the night thus far. Pain well controlled at this time. Will continue to monitor patient.
[2019-01-27 03:11] VITALS: BP 136/54; PULSE 71; TEMP 98.3
--- NOTE | 2019-01-27 06:26 | NUR ---
Patient has rested well throughout the night. Denies pain when asked. No PRN medications given this shift.
--- NOTE | 2019-01-27 06:40 | NUR ---
Report given to SHAVON Landaverde.
[2019-01-27 08:09] LABS: BASO % 0.7 % (0.0-2.0); EOS # 0.4 (0.0-0.7); EOS % 7.4 % (0-4.0); GRAN # 3.6 (1.4-6.5); GRAN % 64.1 % (42.2-75.2); LYMPH # 0.8 (1.2-3.4); LYMPH % 14.7 % (20.0-51.0); MEAN CELL VOLUME 102 fl (80.0-100.0); MEAN CORPUSCULAR HEMOGLOBIN 32 pg (27.0-31.0); MEAN CORPUSCULAR HGB CONC 31 g/dl (33.0-37.0); MEAN PLATELET VOLUME 10.8 fl (7.4-10.4); MONO # 0.7 (0.1-0.6); MONO % 12.2 % (1.7-9.3); PLATELET COUNT 170 K/mm3 (130-400); RED BLOOD COUNT 3.13 M/mm3 (4.20-5.60); REDCELL DISTRIBUTION WIDTH-CV 15.3 % (11.5-14.5)
[2019-01-27 08:14] LABS: INR 1.4 (0.8-3.0); PROTHROMBIN TIME 16.2 SECONDS (9.7-12.8)
[2019-01-27 08:22] LABS: CALCIUM 8.9 mg/dL (8.4-10.2); POTASSIUM 5.2 mmol/L (3.4-5.0)
[2019-01-27 08:25] LABS: CREATININE, serum 5.62 (0.66-1.25)
[2019-01-27 09:20] VITALS: BP 109/46; PULSE 56; TEMP 98.3
[2019-01-27 12:37] VITALS: BP 102/45; PULSE 56; TEMP 98.1
[2019-01-27 17:03] VITALS: BP 119/50; PULSE 58; TEMP 98.2
--- NOTE | 2019-01-27 18:00 | NUR ---
Confused. Cooperative with cares. Takes po meds well. Medicated with Ultram x one this shift. Physical therapy worked with patient. Spouse at bedside.
[2019-01-27 20:30] VITALS: BP 151/58; PULSE 73; TEMP 101.4
[2019-01-28] VITALS (7 sets, daily range): BP systolic 101–125; BP diastolic 44–60; PULSE 54–64; TEMP 97.8–99.2
--- NOTE | 2019-01-28 04:24 | NUR ---
PT RESTING QUIETLY. ELEVATED TEMPERATURE. SCHEDULED PERCOCET FOR PAIN.
[2019-01-28 07:35] LABS: BASO % 0.4 % (0.0-2.0); EOS # 0.4 (0.0-0.7); GRAN # 5.5 (1.4-6.5); GRAN % 69.2 % (42.2-75.2); LYMPH # 1.2 (1.2-3.4); LYMPH % 14.4 % (20.0-51.0); MEAN CELL VOLUME 102 fl (80.0-100.0); MEAN CORPUSCULAR HGB CONC 31 g/dl (33.0-37.0); MEAN PLATELET VOLUME 10.8 fl (7.4-10.4); MONO # 0.8 (0.1-0.6); MONO % 10.5 % (1.7-9.3); PLATELET COUNT 144 K/mm3 (130-400); RED BLOOD COUNT 2.93 M/mm3 (4.20-5.60); REDCELL DISTRIBUTION WIDTH-CV 15.3 % (11.5-14.5)
[2019-01-28 07:40] LABS: INR 1.3 (0.8-3.0); PROTHROMBIN TIME 14.9 SECONDS (9.7-12.8)
[2019-01-28 07:45] LABS: CALCIUM 8.9 mg/dL (8.4-10.2); POTASSIUM 5.2 mmol/L (3.4-5.0)
[2019-01-28 07:49] LABS: CREATININE, serum 7.53 (0.66-1.25); HEMATOCRIT 29.8 % (42.0-52.0); HEMOGLOBIN 9.3 g/dl (13.5-18.0); MEAN CORPUSCULAR HEMOGLOBIN 32 pg (27.0-31.0)
--- NOTE | 2019-01-28 12:37 | NUR ---
bindery worker faxed facesheet, nursing notes and progress notes to [facility] at [phone].
--- NOTE | 2019-01-28 18:00 | NUR ---
Disoriented. Complained of right leg pain with movement. Sat at side of bed with physical therapy in AM. Drowsy. States does not have much appetite. Ultram given for c/o right hip pain.
--- NOTE | 2019-01-28 21:00 | NUR ---
Patient report received from SHAVON Holguin. Patient sitting up in bed at this time watching tv and eating his dinner. Reports pain to right hip, rating it at 5/10. No other needs reported/observed.
[2019-01-29 05:40] VITALS: BP 137/51; PULSE 66; TEMP 97.8
--- NOTE | 2019-01-29 06:55 | NUR ---
REPORT FROM RASHAWN SANDS.
--- NOTE | 2019-01-29 07:06 | NUR ---
Patient report given to SHAVON Jordan. Patient awake and alert. Denies needs at this time.
[2019-01-29 07:30] VITALS: BP 130/48; PULSE 68; TEMP 98.6
[2019-01-29 07:43] LABS: BASO % 0.4 % (0.0-2.0); EOS # 0.5 (0.0-0.7); EOS % 5.9 % (0-4.0); GRAN # 5.7 (1.4-6.5); GRAN % 74.5 % (42.2-75.2); LYMPH # 0.7 (1.2-3.4); LYMPH % 8.7 % (20.0-51.0); MEAN CELL VOLUME 102 fl (80.0-100.0); MEAN CORPUSCULAR HGB CONC 31 g/dl (33.0-37.0); MEAN PLATELET VOLUME 10.7 fl (7.4-10.4); MONO # 0.8 (0.1-0.6); PLATELET COUNT 159 K/mm3 (130-400); PROTHROMBIN TIME 11.9 SECONDS (9.7-12.8); RED BLOOD COUNT 3.11 M/mm3 (4.20-5.60); REDCELL DISTRIBUTION WIDTH-CV 15.3 % (11.5-14.5)
[2019-01-29 07:44] LABS: HEMATOCRIT 31.7 % (42.0-52.0); HEMOGLOBIN 9.9 g/dl (13.5-18.0); MEAN CORPUSCULAR HEMOGLOBIN 32 pg (27.0-31.0)
[2019-01-29 07:48] LABS: CALCIUM 8.9 mg/dL (8.4-10.2); CREATININE, serum 9.41 (0.66-1.25); POTASSIUM 5.2 mmol/L (3.4-5.0)
--- NOTE | 2019-01-29 08:41 | NUR ---
PT RESTING IN BED. EATING BREAKFAST, GOING TO DIALYSIS AROUND 0930. DRESSING TO RIGHT HIP CDI WITH GAUZE OVER INCISION.
--- NOTE | 2019-01-29 09:55 | NUR ---
PT TO DIALYSIS AT THIS TIME.
--- NOTE | 2019-01-29 14:54 | NUR ---
REPORT TO NICANOR SANDS.
[2019-01-29 15:49] VITALS: BP 119/54; PULSE 66; TEMP 97.7
[2019-01-29 20:00] VITALS: BP 135/64; PULSE 66; TEMP 99.3
[2019-01-30] VITALS: BP 120/59; PULSE 60; TEMP 97.9
--- NOTE | 2019-01-30 01:31 | NUR ---
Patient assisted by staff to reposition. Patient noted to be leaned over to his right side. Staff attempted to straighten patient out and put a pillow under his right side to offload, and patient would state, "Alexy, son of a holly, stop that." Patient educated on the importance of repositioning to keep from getting sores. Patient would continue to yell at staff. Staff was able to get patient repositioned. He took his evening medications with no difficulty, but would not answer this nurse's questions. Will continue to monitor patient.
[2019-01-30 03:23] VITALS: BP 120/54; PULSE 58; TEMP 98.7
--- NOTE | 2019-01-30 05:00 | NUR ---
Patient has rested well throughout the night. No yelling out noted. Compliant with cares. Will continue to monitor.
--- NOTE | 2019-01-30 06:23 | NUR ---
Patient stated, "Damn, I hurt." Patient stated he wanted pain medication when asked and stated, "It hurts quite a bit." PRN Pain medication administered. He was noted to be confused this morning and attempted to give me the blanket stating it was his pain pill. Attempted to redirect, but this was difficult and unsuccessful. Will continue to monitor.
--- NOTE | 2019-01-30 06:35 | NUR ---
awake resting in bed, bedside shift report received from SHAVON Sierra
--- NOTE | 2019-01-30 07:00 | NUR ---
Report given to SHAVON Herzog.
[2019-01-30 07:29] VITALS: BP 130/57; PULSE 64; TEMP 98.1
--- NOTE | 2019-01-30 08:10 | NUR ---
physical therapy in to work with patient
--- NOTE | 2019-01-30 08:25 | NUR ---
resting in bed, cries out in pain with any movement, medicated with scheduled percocet, full assessment completed, see intervenitons for further info
[2019-01-30 08:28] LABS: BASO % 0.4 % (0.0-2.0); EOS # 0.3 (0.0-0.7); EOS % 4.5 % (0-4.0); GRAN # 5.2 (1.4-6.5); GRAN % 73.3 % (42.2-75.2); HEMOGLOBIN 10.4 g/dl (13.5-18.0); LYMPH # 0.7 (1.2-3.4); LYMPH % 9.5 % (20.0-51.0); MEAN CELL VOLUME 102 fl (80.0-100.0); MEAN CORPUSCULAR HEMOGLOBIN 32 pg (27.0-31.0); MEAN CORPUSCULAR HGB CONC 31 g/dl (33.0-37.0); MEAN PLATELET VOLUME 10.8 fl (7.4-10.4); MONO # 0.8 (0.1-0.6); MONO % 11.9 % (1.7-9.3); PLATELET COUNT 203 K/mm3 (130-400); RED BLOOD COUNT 3.25 M/mm3 (4.20-5.60); REDCELL DISTRIBUTION WIDTH-CV 15.5 % (11.5-14.5)
[2019-01-30 08:32] LABS: POTASSIUM 5.4 mmol/L (3.4-5.0)
[2019-01-30 08:33] LABS: CREATININE, serum 7.76 (0.66-1.25)
[2019-01-30 08:35] LABS: HEMATOCRIT 33.1 % (42.0-52.0)
[2019-01-30 08:37] LABS: PROTHROMBIN TIME 11.3 SECONDS (9.7-12.8)
--- NOTE | 2019-01-30 09:29 | NUR ---
sitting up in bed and HALL MANAGER assisting him with eating breakfast
--- NOTE | 2019-01-30 10:19 | NUR ---
Dr Delgadillo in to see patient
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
--- NOTE | 2019-01-30 10:44 | NUR ---
SW contacted and faxed updates to [facility].
--- NOTE | 2019-01-30 10:50 | NUR ---
repositioned to left side, h charles does holler when moved but then once he has been repositioned he stops
--- NOTE | 2019-01-30 11:52 | NUR ---
c/o pain with movement to right hip, medicated with hydrocodone 7 .5mg 2 tabs
[2019-01-30 12:07] VITALS: BP 132/52; PULSE 65; TEMP 98.6
[2019-01-30 12:53] LABS: PH 6 (5-8); URINE APPEARANCE Turbid; URINE BACTERIA None Seen /hpf; URINE BILIRUBIN Negative (NEGATIVE); URINE BLOOD 2+ (NEGATIVE); URINE COLOR Yellow; URINE GLUCOSE 2+ (NEGATIVE); URINE KETONE Negative (NEGATIVE); URINE LEUKOCYTE ESTERASE 1+ (NEGATIVE); URINE NITRATE Negative (NEGATIVE); URINE PROTEIN(semi-quant) 2+ (NEGATIVE); URINE RBC >50 /hpf; URINE UROBILINOGEN Negative (NEGATIVE); URINE WBC >50 /hpf
--- NOTE | 2019-01-30 12:54 | NUR ---
in bed and calls out in pain at intervals, waiting for lunch
[2019-01-30 12:55] LABS: COLLECTION METHOD CATHETER
--- NOTE | 2019-01-30 12:58 | NUR ---
sitting up in bed and PHYSIOLOGY TEACHER assisting him with lunch
--- NOTE | 2019-01-30 14:58 | NUR ---
a little more awake now and talking with CNAs
--- NOTE | 2019-01-30 15:00 | NUR ---
domínguez catheter discontinued, tolerated well
[2019-01-30 16:24] VITALS: BP 104/41; PULSE 58; TEMP 97.7
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
--- NOTE | 2019-01-30 18:48 | NUR ---
bedside shift report given to SHAVON Hamilton
[2019-01-30 19:49] VITALS: BP 116/38; PULSE 68; TEMP 99.1
--- NOTE | 2019-01-30 21:30 | NUR ---
Pt. laying in bed at this time. Pt. is alert and confused. INT to rt. wrist patent. Pt. denies pain. Dressing to rt. hip CDI. Pt. voices in pain. Will give pain meds with evening meds. Pt. denies further needs, call light within reach.
[2019-01-31] VITALS: BP 117/40; PULSE 65; PULSE 85; TEMP 98.8
[2019-01-31 04:00] VITALS: BP 120/37; PULSE 67; TEMP 98.7
[2019-01-31 06:10] LABS: BASO % 0.5 % (0.0-2.0); EOS # 0.4 (0.0-0.7); EOS % 6.2 % (0-4.0); GRAN # 3.9 (1.4-6.5); GRAN % 63.4 % (42.2-75.2); LYMPH % 16.2 % (20.0-51.0); MEAN CELL VOLUME 101 fl (80.0-100.0); MEAN CORPUSCULAR HGB CONC 32 g/dl (33.0-37.0); MEAN PLATELET VOLUME 10.5 fl (7.4-10.4); MONO # 0.8 (0.1-0.6); MONO % 13.1 % (1.7-9.3); PLATELET COUNT 194 K/mm3 (130-400); RED BLOOD COUNT 3.03 M/mm3 (4.20-5.60); REDCELL DISTRIBUTION WIDTH-CV 15.4 % (11.5-14.5)
--- NOTE | 2019-01-31 06:12 | NUR ---
Pt. slept well through the night. Pt. remains alert and confused. INT to rt. wrist patent. Pt. repositioned for comfort through out the night. Pt. does not like to be moved. Pt. denies pain or other needs, at this time.
[2019-01-31 06:14] LABS: INR 0.9 (0.8-3.0); PROTHROMBIN TIME 10.7 SECONDS (9.7-12.8)
[2019-01-31 06:18] LABS: HEMATOCRIT 30.6 % (42.0-52.0); HEMOGLOBIN 9.7 g/dl (13.5-18.0); MEAN CORPUSCULAR HEMOGLOBIN 32 pg (27.0-31.0)
[2019-01-31 06:23] LABS: CALCIUM 9.3 mg/dL (8.4-10.2); POTASSIUM 5.4 mmol/L (3.4-5.0)
[2019-01-31 06:24] LABS: CREATININE, serum 9.55 (0.66-1.25)
--- NOTE | 2019-01-31 06:30 | NUR ---
bedside shift report received from SHAVON Hamilton
[2019-01-31 07:18] VITALS: BP 129/53; PULSE 58; TEMP 98
--- NOTE | 2019-01-31 07:20 | NUR ---
appears to be sleeping but awakened and assisted with him washing his face and brushing his teeth by CNAs, repositioned to left side and he does cry out with movement but then quiets after he is on his side, explained to him why it hurts and why he is in the hospital, oriented to self and knows his and where he lives, full assessment completed, see interventions for further info,
--- NOTE | 2019-01-31 07:57 | NUR ---
Dr Delgadillo called to check on patinet and reviewed UA results with him,
--- NOTE | 2019-01-31 08:00 | NUR ---
to dialysis per bed
--- NOTE | 2019-01-31 09:27 | NUR ---
remains in dialysis
--- NOTE | 2019-01-31 10:20 | NUR ---
remains in dialysis but was c/o pain, medicated with scheduled percocet 5mg 1 tab
[2019-01-31 11:53] VITALS: BP 126/44; PULSE 68; TEMP 97.5
--- NOTE | 2019-01-31 13:15 | NUR ---
physical therapy in to work with patient
--- NOTE | 2019-01-31 15:11 | NUR ---
remains resting in bed, attempted to give him his afternoon snack and refuses
--- NOTE | 2019-01-31 16:40 | NUR ---
repositioned to right side, less hollering with this movement, reoriented to time and place
[2019-01-31 16:41] VITALS: BP 135/51; PULSE 67; TEMP 98.1
--- NOTE | 2019-01-31 18:03 | NUR ---
sitting up in bed and is assisting him with supper
--- NOTE | 2019-01-31 18:18 | NUR ---
sitting up in bed and is actually feeding himself and doing well, at bedside
--- NOTE | 2019-01-31 18:49 | NUR ---
bedside shift report given to SHAVON Yanes
[2019-01-31 20:00] VITALS: BP 125/94; PULSE 68; TEMP 98.2
--- NOTE | 2019-01-31 20:52 | NUR ---
Resting in bed. Incontinent of urine. Care provided. Assessment complete. Lungs clear. Heart sounds normal. Bowels active x4. Pulses strong throughout. NO edema noted. Incisions to right hip CDI. Dressing peeling and changed. Reports 5/10 in right hip and knee. Provided with scheduled percocet as ordered. Denies other needs at this time. Blood sugar 374 provided with novolog sliding scale as ordered. Call light in reach. Will monitor.
--- NOTE | 2019-01-31 23:36 | NUR ---
Patient yelling out from right hip pain, confused on place. Reorientated patient and provided with PRN [place]. Will monitor.
[2019-02-01] VITALS: BP 140/48; PULSE 62; TEMP 98.4
--- NOTE | 2019-02-01 00:37 | NUR ---
Resting in bed well. Call light in reach.
[2019-02-01 04:00] VITALS: BP 134/64; PULSE 59; TEMP 97.9
[2019-02-01 06:25] LABS: BASO % 0.5 % (0.0-2.0); EOS # 0.4 (0.0-0.7); EOS % 7.2 % (0-4.0); GRAN # 3.3 (1.4-6.5); GRAN % 58.8 % (42.2-75.2); LYMPH # 1.1 (1.2-3.4); LYMPH % 19.2 % (20.0-51.0); MEAN CELL VOLUME 102 fl (80.0-100.0); MEAN CORPUSCULAR HGB CONC 31 g/dl (33.0-37.0); MEAN PLATELET VOLUME 10.4 fl (7.4-10.4); MONO # 0.8 (0.1-0.6); MONO % 13.4 % (1.7-9.3); PLATELET COUNT 200 K/mm3 (130-400); RED BLOOD COUNT 2.95 M/mm3 (4.20-5.60); REDCELL DISTRIBUTION WIDTH-CV 15.2 % (11.5-14.5)
[2019-02-01 06:29] LABS: HEMOGLOBIN 9.4 g/dl (13.5-18.0); MEAN CORPUSCULAR HEMOGLOBIN 32 pg (27.0-31.0)
--- NOTE | 2019-02-01 06:34 | NUR ---
Patient require pain medication for right hip pain throughout night. Episodes of pain with yelling. Repositioned at least every 2 hours due to unblanchable coccyx. Otherwise uneventful night. Resting in bed asleep this AM. Call light in reach.
[2019-02-01 06:36] LABS: CALCIUM 9.2 mg/dL (8.4-10.2); POTASSIUM 5.1 mmol/L (3.4-5.0)
[2019-02-01 06:42] LABS: CREATININE, serum 7.64 (0.66-1.25)
[2019-02-01 06:50] LABS: INR 0.9 (0.8-3.0); PROTHROMBIN TIME 10.4 SECONDS (9.7-12.8)
--- NOTE | 2019-02-01 07:00 | NUR ---
Report given to SHAVON Jordan
--- NOTE | 2019-02-01 07:03 | NUR ---
report from Farzana SANDS. Pt slept through report.
[2019-02-01 07:50] VITALS: BP 133/56; PULSE 59; TEMP 97.7
--- NOTE | 2019-02-01 08:52 | NUR ---
PT SLEEPING IN BED. PT WOKE UP AND AM MEDS GIVEN. BREAKFAST ORDERED AND PT RECIEVED. EATING BREAKFAST AT THIS TIME. DENIES FURTHER NEEDS.
[2019-02-01 11:49] VITALS: BP 123/55; PULSE 54; TEMP 98.1
--- NOTE | 2019-02-01 11:51 | NUR ---
First visit from the flat sorter processor. prayed with patient. No other needs right now.
--- NOTE | 2019-02-01 13:34 | NUR ---
SW contacted and faxed updates to [facility].
--- NOTE | 2019-02-01 16:30 | NUR ---
PT UP TO CHAIR FOR AFTERNOON. RETURNED TO BED LATE AFTERNOON. PT ROTATING SIDES WHEN NO SLEEPING ON BACK.
[2019-02-01 16:38] VITALS: BP 143/49; PULSE 61; TEMP 97.4
--- NOTE | 2019-02-01 17:39 | NUR ---
PT'S HERE AT THIS TIME.
--- NOTE | 2019-02-01 19:00 | NUR ---
REPORT TO SIDRA RN.
[2019-02-01 20:00] VITALS: BP 112/61; PULSE 75; TEMP 98
--- NOTE | 2019-02-01 21:00 | NUR ---
Patient awakens to name, had been playing Verimatrix with a friend previously. Takes HS meds without problem, including scheduled Percocet. Has right chest Vascath and AV Fistula to left wrist. Patient is alert, confused. Has SL to right hand without redness or swelling. Reports pain to right hip 6/10. TEDS and SCD's on lower legs. No drsg to right hip.
[2019-02-02] VITALS: BP 135/53; PULSE 55; TEMP 98.1
[2019-02-02 04:00] VITALS: BP 132/74; PULSE 58; TEMP 98.2
--- NOTE | 2019-02-02 06:00 | NUR ---
Patient takes AM meds without problem. No concerns offered. Incontinent of urine x1.
[2019-02-02 06:04] LABS: INR 0.9 (0.8-3.0); PROTHROMBIN TIME 10.2 SECONDS (9.7-12.8)
[2019-02-02 07:26] VITALS: BP 142/54; PULSE 58; TEMP 98.1
[2019-02-02] MEDS ORDERED: NORCO 325 MG-7.1 TAB PO (10:27)
[2019-02-02 10:37] LABS: MEAN CELL VOLUME 100 fl (80.0-100.0); MEAN CORPUSCULAR HGB CONC 31 g/dl (33.0-37.0); MEAN PLATELET VOLUME 10.3 fl (7.4-10.4); PLATELET COUNT 225 K/mm3 (130-400); RED BLOOD COUNT 3.14 M/mm3 (4.20-5.60); REDCELL DISTRIBUTION WIDTH-CV 15.4 % (11.5-14.5)
[2019-02-02 10:42] LABS: HEMATOCRIT 31.5 % (42.0-52.0); HEMOGLOBIN 9.9 g/dl (13.5-18.0); MEAN CORPUSCULAR HEMOGLOBIN 32 pg (27.0-31.0)
[2019-02-02 10:45] LABS: ALBUMIN 3.3 gm/dL (3.5-5.0); BILIRUBIN,TOTAL 0.4 mg/dL (0.0-1.0); CALCIUM 9.3 mg/dL (8.4-10.2); POTASSIUM 4.8 mmol/L (3.4-5.0); TOTAL PROTEIN 6.5 gm/dL (6.4-8.2)
[2019-02-02 10:47] LABS: CREATININE, serum 6.17 (0.66-1.25)
[2019-02-02] MEDS ORDERED: MONODOX100 PO (11:13)
[2019-02-02 11:30] LABS: BAND 7 % (0-10); EOSINOPHIL 7 % (0-4); LYMPHOCYTE 14 % (20.0-51.0); NEUTROPHILS 70 % (42.0-75.2); PLATELET ESTIMATE NORMAL (NORMAL)
--- NOTE | 2019-02-02 13:24 | NUR ---
The patient is to discharge today, 02/02, back to [facility] for a skilled stay. Transportation was set for 1445, via [facility]. SW informed the patient, patient's nurse, and the patient's via phone. They were all in agreeance. SW also explained the IM form to the patient's , via phone. They patient's gave SW her verbal consent. No additional needs at this time.
--- NOTE | 2019-02-02 14:32 | NUR ---
REPORT TO ANGELLA SANDS.
--- NOTE | 2019-02-02 15:15 | NUR ---
transportation from [facility] here for patient transfer, assisted into WC and discharged
--- NOTE | 2019-02-02 15:37 | NUR ---
report called to Laine SANDS at [facility]
== END 2019-02-02 15:37 | DRG 480 ==
LOC: COL.ER 20:39 → SURG 22:21
PROVIDERS: Emergency Medicine; Internal Medicine Nephrology; Nurse Anesthetist, Certified Registered; Orthopaedic Surgery; Physician Assistant; ADMIT Internal Medicine
PROC: 0QH634Z Insertion of Internal Fixation Device into Right Upper Femur, Percutaneous Approach (ICD-10-PCS; 2019-01-26)
PROC: 5A1D70Z Performance of Urinary Filtration, Intermittent, Less than 6 Hours Per Day (ICD-10-PCS; principal; 2019-01-26 16:00)
DX: S72.011A Unspecified intracapsular fracture of right femur, initial encounter for closed fracture (principal); N18.6 End stage renal disease; N39.0 Urinary tract infection, site not specified; I12.9 Hypertensive chronic kidney disease with stage 1 through stage 4 chronic kidney disease, or unspecified chronic kidney disease; W05.0XXA Fall from non-moving wheelchair, initial encounter; Y93.9 Activity, unspecified; Y92.129 Unspecified place in nursing home as the place of occurrence of the external cause; D63.1 Anemia in chronic kidney disease; E03.9 Hypothyroidism, unspecified; E87.5 Hyperkalemia; K21.9 Gastro-esophageal reflux disease without esophagitis; E78.5 Hyperlipidemia, unspecified; F32.9 Major depressive disorder, single episode, unspecified; E11.22 Type 2 diabetes mellitus with diabetic chronic kidney disease; E83.39 Other disorders of phosphorus metabolism; F03.90 Unspecified dementia, unspecified severity, without behavioral disturbance, psychotic disturbance, mood disturbance, and anxiety; Z99.2 Dependence on renal dialysis; Z79.01 Long term (current) use of anticoagulants; Z79.4 Long term (current) use of insulin; Z86.73 Personal history of transient ischemic attack (TIA), and cerebral infarction without residual deficits; Z85.51 Personal history of malignant neoplasm of bladder; Z86.718 Personal history of other venous thrombosis and embolism; Z87.891 Personal history of nicotine dependence; Z88.1 Allergy status to other antibiotic agents
CPT/HCPCS: A4216; A9284; C1713; J0690; J0696; J0882; J1644; J1815; J2060; J2250; J2270; J2704; J2795; J2916; J3010; J7030

== ENCOUNTER 2019-03-25 19:53 | Emergency (ER) | payer MEDICARE, OTHER ==
[~2019-03-25] VITALS: Ht 177.8 cm; Wt 86.4 kg
[~2019-03-25 19:53] MED LIST changes: +COUMADIN 3MG3 MG/TAB PO; +DIALYVITE 8001 TAB PO; +MIRALAX PA17 GM/Dose PO; +MONODOX100 PO; +NORCO 325 MG-7.1 TAB PO; +PROTONIX 40MG T40 MG PO; +VELPHORO PO; +VITAMIN C500 MG PO
[2019-03-25 20:00] VITALS: BP 125/60; TEMP 97.8
[2019-03-25] MEDS ORDERED: ULTRAM 50MG TAB50 MG PO (20:21)
[2019-03-25 21:02] VITALS: PULSE 62
== END 2019-03-25 21:02 | disposition home or self-care (01) ==
LOC: COL.ER 19:53
DX: L76.82 Other postprocedural complications of skin and subcutaneous tissue (principal); R01.1 Cardiac murmur, unspecified; N18.6 End stage renal disease; Z99.2 Dependence on renal dialysis; Z79.4 Long term (current) use of insulin

== ENCOUNTER → 2019-03-30 | Outpatient (CLI) | payer MEDICARE, OTHER ==
[~2019-03-30] MED LIST changes: +ULTRAM 50MG TAB50 MG PO
== END ==
LOC: COL.VAS 10:26
DX: I08.0 Rheumatic disorders of both mitral and aortic valves (principal)

== ENCOUNTER → 2019-04-09 | Outpatient (CLI) | payer MEDICARE, OTHER ==
[~2019-04-09] MED LIST changes: +KAPSPARGO SPRIN25 MG PO; +LEVEMIR SQ; +LEXAPRO20 MG PO; +NEPHROCAP PO
== END ==
LOC: ZCOL.LAB 13:18
DX: E11.22 Type 2 diabetes mellitus with diabetic chronic kidney disease (principal); E11.649 Type 2 diabetes mellitus with hypoglycemia without coma; N18.9 Chronic kidney disease, unspecified; L90.9 Atrophic disorder of skin, unspecified

== ENCOUNTER → 2019-04-09 | Outpatient (CLI) | payer MEDICARE, OTHER ==
[~2019-04-09] VITALS: Ht 177.8 cm; Wt 90.0 kg
[2019-04-09 12:58] VITALS: BP 131/68; PULSE 53
[2019-04-09 14:00] VITALS: BP 153/75; PULSE 54
[2019-04-09 14:10] LABS: BASO % 0.4 % (0.0-2.0); EOS # 0.4 (0.0-0.7); EOS % 4.3 % (0-4.0); GRAN # 6.2 (1.4-6.5); GRAN % 73.6 % (42.2-75.2); HEMOGLOBIN 10.4 g/dl (13.5-18.0); LYMPH # 0.9 (1.2-3.4); LYMPH % 10.4 % (20.0-51.0); MEAN CELL VOLUME 106 fl (80.0-100.0); MEAN CORPUSCULAR HEMOGLOBIN 33 pg (27.0-31.0); MEAN CORPUSCULAR HGB CONC 32 g/dl (33.0-37.0); MEAN PLATELET VOLUME 11.2 fl (7.4-10.4); MONO # 0.9 (0.1-0.6); MONO % 10.9 % (1.7-9.3); PLATELET COUNT 143 K/mm3 (130-400); RED BLOOD COUNT 3.11 M/mm3 (4.20-5.60); REDCELL DISTRIBUTION WIDTH-CV 14.6 % (11.5-14.5)
[2019-04-09 14:11] LABS: HEMATOCRIT 32.8 % (42.0-52.0)
[2019-04-09 14:19] LABS: CALCIUM 8.7 mg/dL (8.4-10.2); POTASSIUM 4.8 mmol/L (3.4-5.0)
[2019-04-09 14:22] LABS: CREATININE, serum 10.03 (0.66-1.25)
== END ==
LOC: COL.RAD 11:35
PROVIDERS: Nurse Practitioner
DX: N18.6 End stage renal disease (principal)

== ENCOUNTER 2019-04-11 17:24 | Inpatient (IN) | payer MEDICARE, OTHER ==
[~2019-04-11] VITALS: Ht 175.3 cm; Wt 77.9 kg
[~2019-04-11 17:24] MED LIST changes: -LEVEMIR SQ; -LEXAPRO20 MG PO
[2019-04-11 19:14] LABS: BASO % 0.3 % (0.0-2.0); EOS # 0.1 (0.0-0.7); EOS % 1.5 % (0-4.0); GRAN # 5.8 (1.4-6.5); GRAN % 76.7 % (42.2-75.2); HEMATOCRIT 32.2 % (42.0-52.0); HEMOGLOBIN 10.1 g/dl (13.5-18.0); LYMPH # 0.7 (1.2-3.4); LYMPH % 9.4 % (20.0-51.0); MEAN CELL VOLUME 105 fl (80.0-100.0); MEAN CORPUSCULAR HEMOGLOBIN 33 pg (27.0-31.0); MEAN CORPUSCULAR HGB CONC 31 g/dl (33.0-37.0); MEAN PLATELET VOLUME 11.4 fl (7.4-10.4); MONO # 0.9 (0.1-0.6); MONO % 11.6 % (1.7-9.3); PLATELET COUNT 170 K/mm3 (130-400); RED BLOOD COUNT 3.06 M/mm3 (4.20-5.60); REDCELL DISTRIBUTION WIDTH-CV 14.6 % (11.5-14.5)
[2019-04-11 19:25] LABS: ALBUMIN 3.7 gm/dL (3.5-5.0); BILIRUBIN,TOTAL 0.5 mg/dL (0.0-1.0); CALCIUM 8.9 mg/dL (8.4-10.2); MAGNESIUM 2.5 mg/dL (1.6-2.3); POTASSIUM 4.2 mmol/L (3.4-5.0); TOTAL PROTEIN 6.8 gm/dL (6.4-8.2)
[2019-04-11 19:27] LABS: CREATININE, serum 8.03 (0.66-1.25)
[2019-04-11 19:45] LABS: TROPONIN-I 0.076 ng/mL (0.000-0.035)
[2019-04-11 20:18] LABS: COLLECTION METHOD CLEAN CATCH
[2019-04-11 20:24] LABS: PH 7 (5-8); SQUAMOUS EPITHELIAL None Seen /hpf; URINE APPEARANCE Hazy; URINE BACTERIA None Seen /hpf; URINE BILIRUBIN Negative (NEGATIVE); URINE BLOOD 1+ (NEGATIVE); URINE COLOR Yellow; URINE GLUCOSE 3+ (NEGATIVE); URINE KETONE Negative (NEGATIVE); URINE LEUKOCYTE ESTERASE 1+ (NEGATIVE); URINE NITRATE Negative (NEGATIVE); URINE PROTEIN(semi-quant) 2+ (NEGATIVE); URINE RBC 20-50 /hpf; URINE UROBILINOGEN Negative (NEGATIVE)
[2019-04-11 20:35] LABS: INR 1.8 (0.8-3.0)
[2019-04-11 22:13] VITALS: BP 135/48; PULSE 68; TEMP 98
--- NOTE | 2019-04-11 22:15 | NUR ---
PT ARRIVED TO MEDICAL UNIT WITH . PT A+O TO SELF. PT DOES NOT KNOW WHERE HE IS. RPEORTS NO PAIN. PT BRIEF DRY. PEDAL AND RADIAL PULES 2+. IV FLUSHES WELL, NO REDNESS, NO SWELLING. NO EDEMA NOTED. TELE ON. BILAT BASES FINE CRACKLES. BOWEL SOUNDS AUDIBLE X4 QUAD. NO NEEDS AT THIS TIME. CALL LIGHT IN REACH
[2019-04-11 22:20] VITALS: BP 135/48; PULSE 66; TEMP 98
[2019-04-11 22:21] VITALS: BP 135/48; PULSE 66; TEMP 98
--- NOTE | 2019-04-11 22:37 | NUR ---
PT DAZED BLOOD SUGAR 42- JUICE GIVEN. RECHECKED IN 15 MINS- 61 JUICE GIVEN AND INCREASED TO 89.
[2019-04-11] MEDS ORDERED: LEXAPRO20 MG PO (22:58)
[2019-04-11] MEDS ORDERED: LEVEMIR SQ (23:04)
[2019-04-11 23:33] VITALS: BP 95/32; PULSE 59; TEMP 97.4
[2019-04-12 00:12] VITALS: BP 99/35
--- NOTE | 2019-04-12 01:25 | NUR ---
HAVE GIVEN 3 JUICES THROUGHOUT NIGHT TO THIS POINT TO ASSIST BLOOD SUGAR LEVEL
[2019-04-12 03:26] VITALS: BP 142/60; PULSE 61; TEMP 97.5
--- NOTE | 2019-04-12 05:28 | NUR ---
PT HAD AN UNEVENTFUL NIGHT. REPORTED NO PAIN. BG IN THE 40S- 3 350ML JUICES GIVEN AND MONITORED THROUGHOUT NIGHT. PEDAL AND REDIAL PULSES FELT 2+. LEFT FOREARM FISTULA PULSE AND BRUIT NOTED. IV FLUSHES WELL, NO REDNESS. NO SWELLING. NO NEEDS AT THIS TIME. CALL LIGHT IN REACH . FALL PRECAUTIONS IN PLACE. BED ARLM ON
--- NOTE | 2019-04-12 06:20 | NUR ---
PT SACREAL REGION IS RED BUT BLANCHABLE- PLACED PILLOW UNDER LEFT SIDE. WILL TURN Q2H. PT INCONINENT OF BOWEL- SMALL SMEAR- BREIF CHANGED, TAMEKA CARE PROVIDED. NO NEEDS AT THIS TIME. CALL LIGHT IN REACH.
--- NOTE | 2019-04-12 06:52 | NUR ---
REPORT GIVEN TO SHAVON FRANCOIS. PT SLEEPING
--- NOTE | 2019-04-12 08:12 | NUR ---
Assessment completed, alert/ oriented to person and place but not time and he is forgetful and requires frequent reorientation, denies pain, vital signs stable, fsbs have been running low and encouraging him to eat breakfast at this time/ he drank juice and said he did not want to eat/ I had a tray sent to dialysis, transferred him to express room 18 for dialysis at this time
[2019-04-12 09:07] LABS: BASO % 0.3 % (0.0-2.0); EOS # 0.2 (0.0-0.7); EOS % 3.9 % (0-4.0); GRAN # 4.9 (1.4-6.5); GRAN % 78.5 % (42.2-75.2); LYMPH # 0.6 (1.2-3.4); LYMPH % 8.9 % (20.0-51.0); MEAN CELL VOLUME 103 fl (80.0-100.0); MEAN CORPUSCULAR HGB CONC 33 g/dl (33.0-37.0); MEAN PLATELET VOLUME 10.9 fl (7.4-10.4); MONO # 0.5 (0.1-0.6); MONO % 7.9 % (1.7-9.3); PLATELET COUNT 164 K/mm3 (130-400); RED BLOOD COUNT 2.84 M/mm3 (4.20-5.60); REDCELL DISTRIBUTION WIDTH-CV 14.7 % (11.5-14.5)
[2019-04-12 09:08] LABS: HEMATOCRIT 29.1 % (42.0-52.0); HEMOGLOBIN 9.5 g/dl (13.5-18.0); MEAN CORPUSCULAR HEMOGLOBIN 33 pg (27.0-31.0)
[2019-04-12 09:22] LABS: ALBUMIN 3.2 gm/dL (3.5-5.0); CALCIUM 8.5 mg/dL (8.4-10.2); POTASSIUM 4.1 mmol/L (3.4-5.0)
[2019-04-12 09:24] LABS: CREATININE, serum 6.5 (0.66-1.25)
[2019-04-12 09:48] LABS: TROPONIN-I 0.059 ng/mL (0.000-0.035)
[2019-04-12 12:45] VITALS: BP 148/76; PULSE 78; TEMP 99
--- NOTE | 2019-04-12 15:42 | NUR ---
SWAPNIL met with the patient but due to his confusion, SW contacted the pt's , Kathy to discuss a discharge plan. The pt has been at [facility] in LTC for the past year. The pt requires full care. The pt's PCP is Dr. Sutton from [place] and Dr. Delgadillo and pt receives all medication needs from [facility]. The pt has advanced directives in the EMR. The pt's reports she wants pt to return to [facility] upon discharge. SWAPNIL will continue to follow to assist with discharge recommendations. Kathy Culp
[2019-04-12 17:00] VITALS: BP 136/52; PULSE 66; TEMP 98.8
[2019-04-12 19:17] VITALS: BP 128/51; PULSE 78; TEMP 98.7
--- NOTE | 2019-04-12 20:50 | NUR ---
PT RESTING IN BED A+O BUT IS CONFUSED AT TIMES OF LOCATION. REPORTS NO PAIN, NO SOA. PT ON ROOM AIR. PULSES PALAPBLE. SHIFT ASSESSMENT COMPLETE. TELE ON. RIGHT FORARM FISTULA BRUIT AND THRILL NOTED. PT BRIEF CHAGNED AT THIS TIME, TAMEKA CARE PROVIDED. BOWEL SOUND HEARD THROUGHOUT. NO NEEDS AT THIS TIME CALL LIGHT IN REACH. FALL PRECAUTIONS IN PLACE. BED ALRM. ON
--- NOTE | 2019-04-12 21:35 | NUR ---
PT BG >400- SCHEDULED LEVEMIR 5 U GIVEN AND 10 U IF NOVOLOG GIVEN. WBG ORDERED DR FRASER NOTIFIED AND ORDERED -ANOTHER 5 UNITS LEVEMIR ONCE NOW -RECHECK BG MIDWAY THROUGH NIGHT WILL CONTINUE MONITOR
[2019-04-12 23:47] VITALS: BP 132/49; PULSE 76; TEMP 98.5
[2019-04-13 04:32] VITALS: BP 158/67; PULSE 71; TEMP 98.4
--- NOTE | 2019-04-13 05:22 | NUR ---
PT HAD AN UNEVENTFUL NIGHT. REPORTED NO PAIN. NO SOA. BG >400. INSULIN GIVEN/BEDROS NOTIFIED. 0100 RECHECK- BG WAS IN THE 200s. PT SLEPT THROUGHOUT NIGHT. CONFUSION OF OF WHERE HE WAS AND TIME OF DAY BUT ORIENTED EASILY. FALL PRECAUTIONS IN PLACE. BED ARLM ON. NO NEEDS AT THIS ITME. IV FLUSHES WELL, NO REDNESS, NO SWELLING
--- NOTE | 2019-04-13 06:51 | NUR ---
REPORT GIVEN SHAVON GOMEZ
[2019-04-13 07:37] LABS: BASO % 0.7 % (0.0-2.0); EOS # 0.4 (0.0-0.7); EOS % 6.9 % (0-4.0); GRAN # 3.9 (1.4-6.5); GRAN % 66.5 % (42.2-75.2); LYMPH # 0.9 (1.2-3.4); LYMPH % 15.1 % (20.0-51.0); MEAN CELL VOLUME 104 fl (80.0-100.0); MEAN CORPUSCULAR HGB CONC 32 g/dl (33.0-37.0); MEAN PLATELET VOLUME 11.1 fl (7.4-10.4); MONO # 0.6 (0.1-0.6); MONO % 10.3 % (1.7-9.3); PLATELET COUNT 171 K/mm3 (130-400); REDCELL DISTRIBUTION WIDTH-CV 14.6 % (11.5-14.5)
[2019-04-13 07:42] LABS: ALBUMIN 3.1 gm/dL (3.5-5.0); CALCIUM 8.8 mg/dL (8.4-10.2); CREATININE, serum 7.11 (0.66-1.25); PHOSPHOROUS 4.4 mg/dL (2.5-4.5); POTASSIUM 4.5 mmol/L (3.4-5.0)
[2019-04-13 07:43] LABS: HEMATOCRIT 29.1 % (42.0-52.0); HEMOGLOBIN 9.3 g/dl (13.5-18.0); MEAN CORPUSCULAR HEMOGLOBIN 33 pg (27.0-31.0)
[2019-04-13 08:03] VITALS: BP 136/56; PULSE 71; TEMP 98.3
--- NOTE | 2019-04-13 10:57 | NUR ---
SWAPNIL faxed update to Adriel at [facility]. He sent DPOA and it was placed on the chart.
--- NOTE | 2019-04-13 11:25 | NUR ---
SWAPNIL informed patient is dc today back to [facility]. SWAPNIL contacted Adriel who said they can pick him up at 2pm. will inform .
[2019-04-13 12:24] VITALS: BP 138/51; PULSE 74; TEMP 98.2
--- NOTE | 2019-04-13 17:14 | NUR ---
Patient discharged to [facility] at 1615 accompanied by [facility] staff. Was assisted to wheelchair in marco a lift, tolerated well. Personal belongings and discharge information sent with patient.
== END 2019-04-13 16:15 | DRG 884 ==
LOC: COL.ER 17:24 → MEDICAL 20:52
PROVIDERS: Emergency Medicine; ADMIT Internal Medicine Nephrology
DX: F03.90 Unspecified dementia, unspecified severity, without behavioral disturbance, psychotic disturbance, mood disturbance, and anxiety (principal); N18.6 End stage renal disease; I12.0 Hypertensive chronic kidney disease with stage 5 chronic kidney disease or end stage renal disease; R79.89 Other specified abnormal findings of blood chemistry; E11.65 Type 2 diabetes mellitus with hyperglycemia; L89.159 Pressure ulcer of sacral region, unspecified stage; D63.1 Anemia in chronic kidney disease; N40.0 Benign prostatic hyperplasia without lower urinary tract symptoms; E78.5 Hyperlipidemia, unspecified; E11.21 Type 2 diabetes mellitus with diabetic nephropathy; E66.9 Obesity, unspecified; E03.9 Hypothyroidism, unspecified; F17.210 Nicotine dependence, cigarettes, uncomplicated; M19.90 Unspecified osteoarthritis, unspecified site; Z87.820 Personal history of traumatic brain injury; Z79.84 Long term (current) use of oral hypoglycemic drugs; Z99.2 Dependence on renal dialysis; Z79.01 Long term (current) use of anticoagulants
CPT/HCPCS: J0882; J1644; J1815; J7030

== ENCOUNTER → 2019-04-23 | Outpatient (CLI) | payer MEDICARE, OTHER ==
[~2019-04-23] MED LIST changes: +LEVEMIR SQ; +LEXAPRO20 MG PO
[2019-04-23 21:56] LABS: HEMATOCRIT 31.3 % (42.0-52.0); HEMOGLOBIN 9.9 g/dl (13.5-18.0); MEAN CELL VOLUME 104 fl (80.0-100.0); MEAN CORPUSCULAR HEMOGLOBIN 33 pg (27.0-31.0); MEAN CORPUSCULAR HGB CONC 32 g/dl (33.0-37.0); MEAN PLATELET VOLUME 10.8 fl (7.4-10.4); PLATELET COUNT 247 K/mm3 (130-400); RED BLOOD COUNT 3.01 M/mm3 (4.20-5.60); REDCELL DISTRIBUTION WIDTH-CV 14.6 % (11.5-14.5)
== END ==
LOC: ZLAB.STJ 19:46
PROVIDERS: Family Medicine
DX: R68.89 Other general symptoms and signs (principal)

== ENCOUNTER 2019-08-10 13:25 | Inpatient (IN) | payer MEDICARE, OTHER ==
[~2019-08-10] VITALS: Ht 177.8 cm; Wt 95.8 kg
[~2019-08-10 13:25] MED LIST changes: +COUMADIN 5MG5 MG/TAB PO
[2019-08-10 15:25] LABS: BASO % 0.4 % (0.0-2.0); EOS # 0.2 (0.0-0.7); EOS % 2.1 % (0-4.0); GRAN # 6.2 (1.4-6.5); GRAN % 86.9 % (42.2-75.2); HEMOGLOBIN 10.6 g/dl (13.5-18.0); LYMPH # 0.3 (1.2-3.4); LYMPH % 3.5 % (20.0-51.0); MEAN CELL VOLUME 105 fl (80.0-100.0); MEAN CORPUSCULAR HEMOGLOBIN 33 pg (27.0-31.0); MEAN CORPUSCULAR HGB CONC 31 g/dl (33.0-37.0); MEAN PLATELET VOLUME 11.1 fl (7.4-10.4); MONO # 0.5 (0.1-0.6); MONO % 6.8 % (1.7-9.3); PLATELET COUNT 178 K/mm3 (130-400); RED BLOOD COUNT 3.24 M/mm3 (4.20-5.60); REDCELL DISTRIBUTION WIDTH-CV 15.9 % (11.5-14.5)
[2019-08-10 15:26] LABS: HEMATOCRIT 34.1 % (42.0-52.0)
[2019-08-10 15:39] LABS: ALBUMIN 3.9 gm/dL (3.5-5.0); BILIRUBIN,TOTAL 0.6 mg/dL (0.0-1.0); C-REACTIVE PROTEIN 2.6 mg/dL (0.0-0.9); CALCIUM 8.9 mg/dL (8.4-10.2); CREATININE, serum 7.1 (0.66-1.25); POTASSIUM 5.5 mmol/L (3.4-5.0)
[2019-08-10] MEDS ORDERED: NORVASC2.5 MG PO (20:13)
[2019-08-10] MEDS ORDERED: NORCO 325 MG-7.1 TAB PO (20:15)
[2019-08-10 20:46] VITALS: BP 139/64; PULSE 69; TEMP 98.1
[2019-08-10 23:45] VITALS: BP 122/60; PULSE 71; TEMP 98.7
[2019-08-11] VITALS (7 sets, daily range): BP systolic 114–149; BP diastolic 48–71; PULSE 69–86; TEMP 97.5–99.7
[2019-08-11 06:45] LABS: MEAN CELL VOLUME 106 fl (80.0-100.0); MEAN CORPUSCULAR HGB CONC 31 g/dl (33.0-37.0); MEAN PLATELET VOLUME 11.2 fl (7.4-10.4); PLATELET COUNT 161 K/mm3 (130-400); RED BLOOD COUNT 2.73 M/mm3 (4.20-5.60); REDCELL DISTRIBUTION WIDTH-CV 16.4 % (11.5-14.5)
[2019-08-11 06:47] LABS: HEMATOCRIT 28.8 % (42.0-52.0); HEMOGLOBIN 8.9 g/dl (13.5-18.0); MEAN CORPUSCULAR HEMOGLOBIN 33 pg (27.0-31.0)
[2019-08-11 06:53] LABS: ALBUMIN 3.2 gm/dL (3.5-5.0); CALCIUM 8.7 mg/dL (8.4-10.2); CREATININE, serum 8.07 (0.66-1.25); PHOSPHOROUS 5.6 mg/dL (2.5-4.5); POTASSIUM 5.5 mmol/L (3.4-5.0)
[2019-08-11 07:48] LABS: BAND 5 % (0-10); EOSINOPHIL 10 % (0-4); LYMPHOCYTE 13 % (20.0-51.0); NEUTROPHILS 65 % (42.0-75.2)
[2019-08-11 07:49] LABS: ANISOCYTOSIS 1+; PLATELET ESTIMATE NORMAL (NORMAL)
[2019-08-12 00:15] VITALS: BP 114/54; PULSE 73; TEMP 98.6
[2019-08-12 04:37] VITALS: BP 151/69; PULSE 71; TEMP 97.9
[2019-08-12 07:37] VITALS: BP 153/58; PULSE 70; TEMP 97.9
[2019-08-12 07:40] LABS: BASO % 0.5 % (0.0-2.0); EOS # 0.3 (0.0-0.7); GRAN # 2.4 (1.4-6.5); GRAN % 56.7 % (42.2-75.2); LYMPH # 0.9 (1.2-3.4); LYMPH % 20.8 % (20.0-51.0); MEAN CELL VOLUME 106 fl (80.0-100.0); MEAN CORPUSCULAR HGB CONC 31 g/dl (33.0-37.0); MEAN PLATELET VOLUME 10.9 fl (7.4-10.4); MONO # 0.6 (0.1-0.6); MONO % 13.5 % (1.7-9.3); PLATELET COUNT 167 K/mm3 (130-400); RED BLOOD COUNT 2.85 M/mm3 (4.20-5.60); REDCELL DISTRIBUTION WIDTH-CV 16.2 % (11.5-14.5)
[2019-08-12 07:47] LABS: HEMOGLOBIN 9.3 g/dl (13.5-18.0); MEAN CORPUSCULAR HEMOGLOBIN 33 pg (27.0-31.0)
[2019-08-12 07:48] LABS: HEMATOCRIT 30.2 % (42.0-52.0)
[2019-08-12 08:03] LABS: ALBUMIN 3.5 gm/dL (3.5-5.0); CALCIUM 8.6 mg/dL (8.4-10.2); CREATININE, serum 5.72 (0.66-1.25); PHOSPHOROUS 5.1 mg/dL (2.5-4.5); POTASSIUM 4.9 mmol/L (3.4-5.0)
[2019-08-12 11:03] VITALS: BP 149/54; PULSE 71; TEMP 97.6
--- NOTE | 2019-08-12 12:33 | NUR ---
Patient lives at [facility] and plans to return there upon discharge. Patient has history of demntia therefore is a poor historian but his is able to be an appropriate historian on behalf of the patient. Patient is blind in his right eye and uses a wheelchair for mobility assistance. Patient's primary care physician is Itz Sutton, his pharmacy is [facility], and he does have advance directives for healthcare completed. Patient's Kathy's contact information is [phone]. No further needs at this time and vp digital marketing social media and crm will follow as needed.
[2019-08-12 16:14] VITALS: BP 141/61; PULSE 68; TEMP 99
--- NOTE | 2019-08-12 18:23 | NUR ---
Patient laying in bed upon shift assessment this morning. Denies pain throughout shift although mentions that patient does occasionally mention that his legs "are sore." Patient has had 4 large green loose stools this shift. Immodium given per orders. One episode of emesis after eating lunch. Zofran given per orders. Patient attempted to stand at bedside with help in the hopes of transferring to the commode but did not have the strength to stand all the way up. Patient has been confused throughout shift which is baseline. Re-orients for short periods of time. Patient knows who is he but often forgets where he is or the date. at bedside for most of shift. Call light in reach.
--- NOTE | 2019-08-12 20:00 | NUR ---
Patient assessed at this time. Alert and oriented x 4, and able to make needs known. Patient very short, and wants to be left alone. Peripheral IV to right forearm flushed, site is without redness, warmth, swelling, and pain. AV fistula to left forearm with positive bruit and thrill. On oxygen at 1 L/min via NC. Denies SOB and dyspnea. Occaional moist cough. Reports sputum production, unable to observe. LS CTA upper lobes, diminished lower lobes. Respirations even and unlabored. HRR. BSAx4. Voices no questions, needs, or concerns at this time. Resting in bed with call light within reach.
[2019-08-12 20:17] VITALS: BP 143/60; PULSE 73; TEMP 99.4
[2019-08-13] VITALS (7 sets, daily range): BP systolic 111–147; BP diastolic 47–73; PULSE 63–94; TEMP 98–99.5
--- NOTE | 2019-08-13 06:03 | NUR ---
Patient confused during the night, stating that he had to give a lecture. High fall risk precautions in place. Unable to redirect. Did not attempt to get out of bed independently. Resting in bed with call light within reach. Continues to be short and upset with staff during cares.
[2019-08-13 07:16] LABS: BASO % 0.2 % (0.0-2.0); EOS % 0.4 % (0-4.0); GRAN # 8.5 (1.4-6.5); GRAN % 84.3 % (42.2-75.2); LYMPH # 0.6 (1.2-3.4); LYMPH % 6.3 % (20.0-51.0); MEAN CELL VOLUME 106 fl (80.0-100.0); MEAN CORPUSCULAR HGB CONC 31 g/dl (33.0-37.0); MEAN PLATELET VOLUME 11.1 fl (7.4-10.4); MONO # 0.8 (0.1-0.6); MONO % 8.1 % (1.7-9.3); PLATELET COUNT 160 K/mm3 (130-400); RED BLOOD COUNT 2.91 M/mm3 (4.20-5.60)
[2019-08-13 07:23] LABS: ALBUMIN 3.5 gm/dL (3.5-5.0); CALCIUM 8.5 mg/dL (8.4-10.2); CREATININE, serum 8.42 (0.66-1.25); PHOSPHOROUS 4.9 mg/dL (2.5-4.5); POTASSIUM 5.4 mmol/L (3.4-5.0)
[2019-08-13 07:25] LABS: HEMATOCRIT 30.9 % (42.0-52.0); HEMOGLOBIN 9.5 g/dl (13.5-18.0); MEAN CORPUSCULAR HEMOGLOBIN 33 pg (27.0-31.0)
--- NOTE | 2019-08-13 09:35 | NUR ---
Pt awake and alert this morning, leaning over in bed assisted to upright position, shifft assessments complete, left Pt call light in [facility], bed in lowest position, alarm on.
--- NOTE | 2019-08-13 10:23 | NUR ---
Talked to Amy RN, about [facility], she recommended SCD's for Pt, order entered.
--- NOTE | 2019-08-13 14:07 | NUR ---
SWAPNIL contacted the patient's , Kathy, to review discharge plan and to explain the Patient Choice Form. Kathy reports that the plan is for the patient to return back to [facility] upon discharge. Katyh gave SWAPNIL her verbal consent for the Patient Choice Form. SWAPNIL contacted and faxed updates to Adriel at [facility]. SWAPNIL to continue to follow.
--- NOTE | 2019-08-13 18:32 | NUR ---
Pt rested in the room today, no C/O pain, VS have remained stable.
[2019-08-14 03:42] VITALS: BP 124/52; PULSE 62; TEMP 98.6
[2019-08-14 07:57] VITALS: BP 129/54; PULSE 69; TEMP 98.4
--- NOTE | 2019-08-14 08:53 | NUR ---
Pt alert to person and place but confused to time this am. Pt ate 50% of breakfast and requests more cranberry juice. Pt denies pain or SOB or N/V/D. Pt going to have dialysis today. Pt's IV leaks with flush no redness or infiltration noted. Will discontinue IV and try to start a new one. Pt has call light in reach and denies further needs.
[2019-08-14 09:09] LABS: BASO % 0.3 % (0.0-2.0); EOS # 0.3 (0.0-0.7); LYMPH # 0.6 (1.2-3.4); LYMPH % 9.4 % (20.0-51.0); MEAN CELL VOLUME 105 fl (80.0-100.0); MEAN CORPUSCULAR HGB CONC 31 g/dl (33.0-37.0); MONO # 0.5 (0.1-0.6); PLATELET COUNT 161 K/mm3 (130-400); RED BLOOD COUNT 2.91 M/mm3 (4.20-5.60); REDCELL DISTRIBUTION WIDTH-CV 16.1 % (11.5-14.5)
[2019-08-14 09:17] LABS: HEMATOCRIT 30.6 % (42.0-52.0); HEMOGLOBIN 9.5 g/dl (13.5-18.0); MEAN CORPUSCULAR HEMOGLOBIN 33 pg (27.0-31.0)
[2019-08-14 09:29] LABS: ALBUMIN 3.5 gm/dL (3.5-5.0); CREATININE, serum 10.1 (0.66-1.25); PHOSPHOROUS 6.5 mg/dL (2.5-4.5); POTASSIUM 5.4 mmol/L (3.4-5.0)
[2019-08-14 11:54] VITALS: BP 119/53; PULSE 75; TEMP 98.6
--- NOTE | 2019-08-14 13:00 | NUR ---
Pt taken down to dialysis via bed. Pt's spouse at bedside and updated on pt's discharge order to [facility] after dialysis. Pt alert but remains confused to place and time. Pt IV discontinued in RAC. IV was leaking and pt going to discharge so no new IV started. Pt ate lunch before going to dialysis and sliding scale insulin given.
--- NOTE | 2019-08-14 14:30 | NUR ---
The patient is to discharge today, 08/14, back to [facility] for long-term care. Transportation was arranged for around [id number], via [facility]. SWAPNIL informed the patient's RN and his , via phone. They were both in agreeance to the time. SWAPNIL also explained the IM form to the patient's , Kathy. The patient's gave SW her verbal consent. No additional needs at this time.
--- NOTE | 2019-08-14 15:21 | NUR ---
Pt report given to Cortney SANDS
--- NOTE | 2019-08-14 17:00 | NUR ---
Patient assissted with getting dressed and transfered into wheelchair with nursing staffx2. Denies pain and discomfort. No IV access. Fistual site LF forearm CDI, paper tape and gauze covering. Personal belongings with patient. Discharge packet with transporter. No further needs expressed from patient. Report called to [facility] nurse.
== END 2019-08-14 17:00 | DRG 391 ==
LOC: COL.ER 13:25 → MEDICAL 16:01
PROVIDERS: Family Medicine; ADMIT Internal Medicine Nephrology
PROC: 5A1D70Z Performance of Urinary Filtration, Intermittent, Less than 6 Hours Per Day (ICD-10-PCS; principal; 2019-08-11)
DX: K52.9 Noninfective gastroenteritis and colitis, unspecified (principal); N18.6 End stage renal disease; I12.0 Hypertensive chronic kidney disease with stage 5 chronic kidney disease or end stage renal disease; D63.1 Anemia in chronic kidney disease; E11.65 Type 2 diabetes mellitus with hyperglycemia; E11.22 Type 2 diabetes mellitus with diabetic chronic kidney disease; E11.40 Type 2 diabetes mellitus with diabetic neuropathy, unspecified; E78.5 Hyperlipidemia, unspecified; E66.9 Obesity, unspecified; E87.5 Hyperkalemia; M19.90 Unspecified osteoarthritis, unspecified site; E03.9 Hypothyroidism, unspecified; F03.90 Unspecified dementia, unspecified severity, without behavioral disturbance, psychotic disturbance, mood disturbance, and anxiety; Z68.30 Body mass index [BMI] 30.0-30.9, adult; Z79.01 Long term (current) use of anticoagulants; Z79.4 Long term (current) use of insulin; Z79.891 Long term (current) use of opiate analgesic; Z99.2 Dependence on renal dialysis; Z87.891 Personal history of nicotine dependence; Z86.73 Personal history of transient ischemic attack (TIA), and cerebral infarction without residual deficits; Z88.1 Allergy status to other antibiotic agents
CPT/HCPCS: J0882; J1644; J1815; J2405; J7030

== ENCOUNTER → 2019-09-11 | Outpatient (CLI) | payer MEDICARE, OTHER ==
[~2019-09-11] MED LIST changes: -COUMADIN 5MG5 MG/TAB PO; +COUMADIN 77.5 MG/TAB PO; +DOXYCYCLINE HY100 MG PO; +EXPECTORANT DM120 ML PO; +IPRATROPIUM BROM3 M1 IH; +MUCINEX 60600 MG/TA1 PO; +NOVOLOG 100U100 U/M1 SQ
== END ==
LOC: COL.RAD 09:00
DX: R05 Cough (principal); R09.89 Other specified symptoms and signs involving the circulatory and respiratory systems; R91.8 Other nonspecific abnormal finding of lung field

== ENCOUNTER 2019-09-24 04:28 | Inpatient (IN) | payer MEDICARE, OTHER, MEDICAID ==
[~2019-09-24] VITALS: Ht 177.8 cm; Wt 90.5 kg
[~2019-09-24 04:28] MED LIST changes: -DOXYCYCLINE HY100 MG PO; -EXPECTORANT DM120 ML PO; -NOVOLOG 100U100 U/M1 SQ
[2019-09-24 05:03] LABS: BASO % 0.6 % (0.0-2.0); EOS % 0.4 % (0-4.0); GRAN # 3.9 (1.4-6.5); GRAN % 76.2 % (42.2-75.2); HEMATOCRIT 30.3 % (42.0-52.0); HEMOGLOBIN 9.3 g/dl (13.5-18.0); LYMPH # 0.6 (1.2-3.4); MEAN CELL VOLUME 102 fl (80.0-100.0); MEAN CORPUSCULAR HEMOGLOBIN 31 pg (27.0-31.0); MEAN CORPUSCULAR HGB CONC 31 g/dl (33.0-37.0); MEAN PLATELET VOLUME 10.8 fl (7.4-10.4); MONO # 0.5 (0.1-0.6); MONO % 10.6 % (1.7-9.3); PLATELET COUNT 138 K/mm3 (130-400); RED BLOOD COUNT 2.98 M/mm3 (4.20-5.60); REDCELL DISTRIBUTION WIDTH-CV 16.7 % (11.5-14.5)
[2019-09-24 05:08] LABS: INR 4.2 (0.8-3.0)
[2019-09-24 05:10] LABS: PARTIAL THROMBOPLASTIN TIME 45.8 SECONDS (26.0-37.0)
[2019-09-24 05:13] LABS: PROTHROMBIN TIME 51.4 SECONDS (9.7-12.8)
[2019-09-24 05:14] LABS: ALBUMIN 3.9 gm/dL (3.5-5.0); BILIRUBIN,TOTAL 0.9 mg/dL (0.0-1.0); CALCIUM 8.7 mg/dL (8.4-10.2); CREATININE, serum 9.93 (0.66-1.25); MAGNESIUM 2.5 mg/dL (1.6-2.3); PHOSPHOROUS 7.6 mg/dL (2.5-4.5); POTASSIUM 5.6 mmol/L (3.4-5.0); TOTAL PROTEIN 7.3 gm/dL (6.4-8.2)
[2019-09-24] MEDS ORDERED: LEXAPRO20 MG PO (08:22)
[2019-09-24] MEDS ORDERED: VELPHORO PO (08:25)
[2019-09-24] MEDS ORDERED: NOVOLOG 100U100 U/M1 SQ (09:03)
[2019-09-24] MEDS ORDERED: DOXYCYCLINE HY100 MG PO (09:14)
[2019-09-24] MEDS ORDERED: EXPECTORANT DM120 ML PO (09:16)
[2019-09-24 13:21] VITALS: BP 146/72; PULSE 73; TEMP 98.2
[2019-09-24] MEDS ORDERED: NOVOLOG FLEX100 U/ML SQ (16:44)
[2019-09-24] MEDS ORDERED: LOPRESSOR 225 MG/TAB PO (16:47)
--- NOTE | 2019-09-24 16:49 | NUR ---
SWAPNIL met with the patient and the patient's , Charu to complete an intial assessment. The patient resides at [facility] and Charu lives in [place]. The patient receives assistance with ADLs. The patient uses oxygen (1L) and uses a wheelchair and lift to transfer. The patient's PCP is Dr. Puentes and patient receives medications from [facility]. The patient has advanced directives in the EMR. The plan is to return to [facility] upon discharge. government services professional will continue to follow.
[2019-09-24 17:20] VITALS: BP 137/59; PULSE 81; TEMP 99
--- NOTE | 2019-09-24 18:14 | NUR ---
Arrived to floor this afternoon from dialysis, has C/O pain in chest from coughing, Pt currently has a dry unproductive cough, initial assessments completed, med rec completed.
--- NOTE | 2019-09-24 19:15 | NUR ---
REPORT RECEIVED FROM SHAVON SANCHEZ; CARE OF PT ASSUMED AT THIS TIME.
--- NOTE | 2019-09-24 19:18 | NUR ---
Report given to SHAVON Natarajan
[2019-09-24 19:47] VITALS: BP 122/46; PULSE 89
--- NOTE | 2019-09-24 21:30 | NUR ---
PT IS AWAKE, ALERT, OX2, DOES NOT KNOW THE YEAR CURRENTLY. PT DENIES PAIN. LS ARE COARSE WITH WHEEZES THROUGHOUT, MOIST SOUNDING COUGH NOTED. PT REPORTS GARZA, MILD DYSPNEA NOTED WITH CONVERSATION. NO EDEMA NOTED, MURMUR AUSCULTATED. O2 ON AT 1L CURRENTLY. CALL LIGHT WITHIN REACH.
[2019-09-24 23:52] VITALS: BP 109/53; PULSE 75; TEMP 97.9
[2019-09-25 04:29] VITALS: BP 116/86; PULSE 79; TEMP 97.9
--- NOTE | 2019-09-25 04:52 | NUR ---
PT HAS SLEPT MOST OF THE NIGHT, DENIES ANY PAIN OR OTHER ISSUES. HE HAS COUGHED THROUGHOUT THE NIGHT, NO SPUTUM VISUALIZED. WEARING O2 AT 1L BUT OCC TAKES THIS OFF. PT HAS HAD INTERMITTENT CONFUSION THROUGH THE NIGHT. BS AT ONE POINT WAS 46 AND PT THEN ATE SOME CRACKERS WITH PB AND HAD SOME OJ THEN BS WAS REPEATED AND FOUND TO BE 124. PT WAS NOT SYMPTOMATIC. HAVE NOT OBSERVED PT OUT OF BED, STATES THAT HE DOES AMBULATE WITH HIS 'S HELP. PT HAS NOT BEEN USING CALL LIGHT, FORGETFUL. BED EXIT ALARM ACTIVATED, CALL LIGHT WITHIN REACH.
--- NOTE | 2019-09-25 07:31 | NUR ---
REPORT GIVEN TO SHAVON SANCHEZ.
[2019-09-25 08:06] LABS: BASO % 0.5 % (0.0-2.0); EOS # 0.2 (0.0-0.7); EOS % 3.8 % (0-4.0); GRAN # 2.6 (1.4-6.5); GRAN % 64.8 % (42.2-75.2); LYMPH # 0.7 (1.2-3.4); LYMPH % 17.2 % (20.0-51.0); MEAN CELL VOLUME 102 fl (80.0-100.0); MEAN CORPUSCULAR HGB CONC 31 g/dl (33.0-37.0); MEAN PLATELET VOLUME 11.3 fl (7.4-10.4); MONO # 0.5 (0.1-0.6); MONO % 13.4 % (1.7-9.3); PLATELET COUNT 160 K/mm3 (130-400); RED BLOOD COUNT 2.71 M/mm3 (4.20-5.60)
[2019-09-25 08:07] LABS: HEMATOCRIT 27.7 % (42.0-52.0); HEMOGLOBIN 8.5 g/dl (13.5-18.0); MEAN CORPUSCULAR HEMOGLOBIN 31 pg (27.0-31.0)
[2019-09-25 08:08] LABS: INR 3.1 (0.8-3.0); PROTHROMBIN TIME 37.6 SECONDS (9.7-12.8)
[2019-09-25 08:15] LABS: ALBUMIN 3.5 gm/dL (3.5-5.0); CALCIUM 8.4 mg/dL (8.4-10.2); CREATININE, serum 6.66 (0.66-1.25); PHOSPHOROUS 5.4 mg/dL (2.5-4.5); POTASSIUM 4.7 mmol/L (3.4-5.0)
[2019-09-25 08:43] VITALS: BP 137/62; PULSE 73; TEMP 97.7
--- NOTE | 2019-09-25 13:18 | NUR ---
Warfarin Initial Dosing Pharmacy Note Ordering Provider: Earl Delgadillo MD Indication: VTE/PE Treatment LABS: INR 3.1, DOWN FROM 4.2 ON 09/24. Expect INR to decrease further if not dosed. Recommendation: 5 MG ONCE, FOLLOW INR.
--- NOTE | 2019-09-25 16:39 | NUR ---
Supervising Editor News Reel met with patient to discuss discharge planning. Patient is from [facility]. Patient states he wants to go home but understands he will need to return to [facility]. Patient's Kathy lives in [place]. SWAPNIL contacted Kathy ([phone]) to discuss discharge planning. Kathy reports that patient has been seeing Dr. Jesús Hanson for primary care and uses a wheelchair most of the time. Patient requires sit to stand lift for transfers per Kathy. Patient has DPOA-HC which designate Kathy. SWAPNIL presented Patient Preference Form to Kathy via phone call. Kathy selected [facility] and provided verbal consent via phone call. SWAPNIL faxed referral to [facility]. SWAPNIL to continue to follow.
[2019-09-25 17:51] VITALS: BP 133/55; PULSE 71; TEMP 97.8
--- NOTE | 2019-09-25 18:29 | NUR ---
Pt rested in the room after returning from dialysis this morning, reported thatr 3000ml fluid removed from Pt. No C/O pain during the day. VS have remained stable.
--- NOTE | 2019-09-25 20:00 | NUR ---
Initial shift assessment done- awake, drowsy, wants to go to sleep- taking meds without problems, denies pain, follows directions- confused to place/time. Bed alarm on.02 at 1L/nc, denies any SOB
[2019-09-25 20:49] VITALS: BP 156/63; PULSE 56; TEMP 98
[2019-09-25 23:12] VITALS: BP 125/62; PULSE 74; TEMP 97.6
--- NOTE | 2019-09-26 01:30 | NUR ---
Has been coughing- keeping him awake- cough medicine and Tylenol 3# given at this time--very stiff and acting like he,s in pain when we try to reposition him
[2019-09-26 04:41] VITALS: BP 131/70; PULSE 63; TEMP 97.6
--- NOTE | 2019-09-26 06:03 | NUR ---
Quiet night- cough medicine and Tylenol #3 worked very well to decrease his cough throughout the night-- VSS, Pleasantly confused this morning-cooperative--states he will just "go back to sleep for a little while now"
--- NOTE | 2019-09-26 08:30 | NUR ---
Assessment completed, alert/ disoriented with severe dementia, vital signs stable, denies pain or discomfort, lungs diminished with some coarseness noted in bases, heart RRR/ SR on tele, ABX infusing for PNA, he is sitting up eating, present at bedside, plan of care discussed, denies other needs at this time
[2019-09-26 08:37] VITALS: BP 132/67; PULSE 66; TEMP 97.9
--- NOTE | 2019-09-26 10:42 | NUR ---
Initial visit; Patient and his thanked Relief Manager for stopping. Relief Manager will follow up, patient doing PT.
[2019-09-26 12:00] VITALS: BP 115/57; PULSE 73; TEMP 97.9
[2019-09-26 12:56] LABS: MEAN CELL VOLUME 101 fl (80.0-100.0); MEAN CORPUSCULAR HGB CONC 30 g/dl (33.0-37.0); MEAN PLATELET VOLUME 10.8 fl (7.4-10.4); PLATELET COUNT 156 K/mm3 (130-400); REDCELL DISTRIBUTION WIDTH-CV 16.5 % (11.5-14.5)
[2019-09-26 12:57] LABS: HEMATOCRIT 29.3 % (42.0-52.0); HEMOGLOBIN 8.9 g/dl (13.5-18.0); MEAN CORPUSCULAR HEMOGLOBIN 31 pg (27.0-31.0)
[2019-09-26 13:01] LABS: INR 2.2 (0.8-3.0); PROTHROMBIN TIME 26.4 SECONDS (9.7-12.8)
[2019-09-26 13:08] LABS: BAND 6 % (0-10); BASOPHIL 1 % (0-2); EOSINOPHIL 6 % (0-4); LYMPHOCYTE 21 % (20.0-51.0); METAMYELOCYTE 2 % (0-0); NEUTROPHILS 62 % (42.0-75.2); PLATELET ESTIMATE NORMAL (NORMAL)
[2019-09-26 13:14] LABS: ALBUMIN 3.4 gm/dL (3.5-5.0); CALCIUM 8.7 mg/dL (8.4-10.2); CREATININE, serum 5.57 (0.66-1.25); PHOSPHOROUS 4.6 mg/dL (2.5-4.5); POTASSIUM 4.1 mmol/L (3.4-5.0)
[2019-09-26 16:45] VITALS: BP 141/57; PULSE 74; TEMP 97.8
[2019-09-26 19:56] VITALS: BP 139/64; PULSE 92; TEMP 98.1
--- NOTE | 2019-09-26 21:00 | NUR ---
REPORT RECEIVED FROM PRISCILA SANDS AT SHIFT CHANGE. PT RESTING IN BED. CONTINUED DROPLET ISOLATION FOR RSV/PNA. PT HX DEMENTIA. PT PLEASANT AND COOPERTIVE. HERE EARLIER FED PT LATE DINNER. PT DOESNT REMEMBER HER BEING HERE. REVIEWED MEDS SEVERAL TIMES. NO RESP DISTRESS AT THIS TIME. SEE ASSESSMENT. CALL LIGHT IN REACH. BED ALARM SET.
[2019-09-26 23:08] VITALS: BP 125/50; PULSE 64; TEMP 97.8
[2019-09-27 04:06] VITALS: BP 129/51; PULSE 65; TEMP 97.5
--- NOTE | 2019-09-27 06:20 | NUR ---
PT AWAKE. LOOSE COUGH CONTINUES. SLEPT WELL THIS NIGHT. DENIES NEED FOR COUGH MED OR PAIN MED. QUIET UNEVENTFUL IGHT.
[2019-09-27 07:15] VITALS: BP 133/56; PULSE 63; TEMP 97.5
[2019-09-27 07:23] LABS: MEAN CELL VOLUME 100 fl (80.0-100.0); MEAN CORPUSCULAR HGB CONC 30 g/dl (33.0-37.0); MEAN PLATELET VOLUME 10.5 fl (7.4-10.4); PLATELET COUNT 170 K/mm3 (130-400); REDCELL DISTRIBUTION WIDTH-CV 16.3 % (11.5-14.5)
[2019-09-27 07:25] LABS: HEMOGLOBIN 9.1 g/dl (13.5-18.0); MEAN CORPUSCULAR HEMOGLOBIN 30 pg (27.0-31.0)
[2019-09-27 07:38] LABS: ALBUMIN 3.3 gm/dL (3.5-5.0); CALCIUM 8.8 mg/dL (8.4-10.2); CREATININE, serum 7.54 (0.66-1.25); PHOSPHOROUS 5.4 mg/dL (2.5-4.5); POTASSIUM 4.1 mmol/L (3.4-5.0)
[2019-09-27 08:33] LABS: BAND 4 % (0-10); EOSINOPHIL 8 % (0-4); LYMPHOCYTE 21 % (20.0-51.0); METAMYELOCYTE 3 % (0-0); NEUTROPHILS 53 % (42.0-75.2); OVALOCYTES 1+; PLATELET ESTIMATE NORMAL (NORMAL)
[2019-09-27 09:26] LABS: INR 2.6 (0.8-3.0); PROTHROMBIN TIME 31.2 SECONDS (9.7-12.8)
[2019-09-27 10:42] VITALS: BP 128/56; PULSE 66; TEMP 97.5
--- NOTE | 2019-09-27 10:57 | NUR ---
Assessment completed, alert/ disoriented, vital signs stable, denies pain, still having non-productive cough, lungs coarese and diminished, he is no longer requiring supplemental O2, IV Rocephin given, heart RRR/ distal puless are palpable, scheduled for dialysis today, will continue to monitor
[2019-09-27 12:21] VITALS: BP 150/52; PULSE 70
--- NOTE | 2019-09-27 17:00 | NUR ---
Power Equipment Mechanics Instructor faxed updates to Adriel at [facility]. SWAPNIL to continue to follow.
[2019-09-27 19:37] VITALS: BP 110/44; PULSE 82; TEMP 97.9
--- NOTE | 2019-09-27 20:30 | NUR ---
Initial shift assessment done- coughing, will give his Tylenol 3# for cough- effective for that- does not like the cough syrup,, very confused, insists that today is not sep 27-- thinks he has been here for over a month and its October. Ate about 50% of supper- states no appetite. Tele on
[2019-09-27 23:10] VITALS: BP 140/48; PULSE 76; TEMP 97.7
[2019-09-28 04:22] VITALS: BP 135/52; PULSE 71; TEMP 98.2
--- NOTE | 2019-09-28 06:14 | NUR ---
Slept fairly well tonight- no requests,confused- bed alarm on. Repositioned with 2 assists- denies pain- no cough noted
[2019-09-28 07:55] VITALS: BP 136/53; PULSE 68; TEMP 98
[2019-09-28 08:09] LABS: MEAN CELL VOLUME 100 fl (80.0-100.0); MEAN CORPUSCULAR HGB CONC 31 g/dl (33.0-37.0); MEAN PLATELET VOLUME 10.5 fl (7.4-10.4); PLATELET COUNT 191 K/mm3 (130-400); RED BLOOD COUNT 3.01 M/mm3 (4.20-5.60); REDCELL DISTRIBUTION WIDTH-CV 16.3 % (11.5-14.5)
[2019-09-28 08:23] LABS: HEMATOCRIT 30.1 % (42.0-52.0); HEMOGLOBIN 9.4 g/dl (13.5-18.0); MEAN CORPUSCULAR HEMOGLOBIN 31 pg (27.0-31.0)
[2019-09-28 08:28] LABS: INR 3.3 (0.8-3.0); PROTHROMBIN TIME 39.8 SECONDS (9.7-12.8)
[2019-09-28 08:32] LABS: ALBUMIN 3.6 gm/dL (3.5-5.0); CALCIUM 8.9 mg/dL (8.4-10.2); CREATININE, serum 5.31 (0.66-1.25); POTASSIUM 3.9 mmol/L (3.4-5.0)
[2019-09-28 08:59] LABS: BAND 2 % (0-10); EOSINOPHIL 3 % (0-4); LYMPHOCYTE 18 % (20.0-51.0); NEUTROPHILS 71 % (42.0-75.2); OVALOCYTES 1+; PLATELET ESTIMATE NORMAL (NORMAL)
--- NOTE | 2019-09-28 09:51 | NUR ---
Pt assessment complete. Pt is laying in bed upon entry, he is alert but oriented to person only, pt very forgetful and unable to follow conversation. Pt denies any pain. Reports nausea but continues to eat ok for me. Pt denies any pain. Is currently on oxygen, breathing even and unlabored. No needs at this time. Bed alarm in place. Isolation precautions up. No further needs at this time. Call light within reach.
[2019-09-28 11:11] VITALS: BP 106/41; PULSE 65; TEMP 97.5
[2019-09-28 16:14] VITALS: BP 121/44; PULSE 76; TEMP 97.8
--- NOTE | 2019-09-28 19:17 | NUR ---
Pt had uneventful day. He was drowsy throughout the day. Intermittent pain to whole body, PRN Tylenol administered. Pt now on RA. Repositioned through the day. at bedside.
[2019-09-28 20:02] VITALS: BP 125/43; PULSE 80; TEMP 97.9
--- NOTE | 2019-09-28 20:30 | NUR ---
Initial shift assessment done- denies pain, remains very confused- at bedside helping him eat- pt states not much appetite, is coughing tonight,,will give the tylenol #3 for cough.
[2019-09-29 00:23] VITALS: BP 118/49; PULSE 73; TEMP 98.2
[2019-09-29 04:51] VITALS: BP 118/50; PULSE 63; TEMP 97.8
--- NOTE | 2019-09-29 07:00 | NUR ---
Quiet night- remains pleasantly confused- VSS, repositioned in bed- taking sips of diet soda throughout the night- denies pain/SOB
[2019-09-29 07:59] LABS: BASO % 0.7 % (0.0-2.0); EOS # 0.5 (0.0-0.7); EOS % 9.1 % (0-4.0); GRAN # 3.6 (1.4-6.5); GRAN % 64.1 % (42.2-75.2); LYMPH % 16.9 % (20.0-51.0); MEAN CELL VOLUME 100 fl (80.0-100.0); MEAN CORPUSCULAR HGB CONC 31 g/dl (33.0-37.0); MEAN PLATELET VOLUME 10.7 fl (7.4-10.4); MONO # 0.5 (0.1-0.6); MONO % 8.7 % (1.7-9.3); PLATELET COUNT 211 K/mm3 (130-400); RED BLOOD COUNT 3.07 M/mm3 (4.20-5.60); REDCELL DISTRIBUTION WIDTH-CV 16.4 % (11.5-14.5)
[2019-09-29 08:03] LABS: INR 3.7 (0.8-3.0); PROTHROMBIN TIME 44.6 SECONDS (9.7-12.8)
[2019-09-29 08:04] LABS: HEMATOCRIT 30.8 % (42.0-52.0); HEMOGLOBIN 9.5 g/dl (13.5-18.0); MEAN CORPUSCULAR HEMOGLOBIN 31 pg (27.0-31.0)
[2019-09-29 08:09] LABS: ALBUMIN 3.4 gm/dL (3.5-5.0); CREATININE, serum 7.24 (0.66-1.25); PHOSPHOROUS 4.7 mg/dL (2.5-4.5); POTASSIUM 4.1 mmol/L (3.4-5.0)
[2019-09-29 08:20] VITALS: BP 128/50; PULSE 65; TEMP 97.7
--- NOTE | 2019-09-29 09:58 | NUR ---
PATIENT ASSESSMENT COMPLETED. HE DENIES ANY PAIN AT THIS TIME. ASSISTANCE PROVIDED TO EAT BREAKFAST.
[2019-09-29 12:11] VITALS: BP 112/45; PULSE 71; TEMP 97.9
[2019-09-29 16:19] VITALS: BP 134/44; PULSE 73; TEMP 97.5
--- NOTE | 2019-09-29 21:00 | NUR ---
Patient returned from HDU via bed. Awake, but drowsy. Oriented to person only, but knows he is at a hospital. Drowsy and unable to follow direction when taking medication. Denies pain. Did not want to eat dinner, but wanted applesauce. SEMICONDUCTOR LAB TECHNICIAN assisted pt with eating applesauce. Denies further needs at this time. Will continue to monitor.
[2019-09-30 03:37] VITALS: BP 118/48; PULSE 65; TEMP 98.4
--- NOTE | 2019-09-30 06:20 | NUR ---
Patient in bed, sleeping. Patient not able to stay awake enough to follow commands to take morning medication. Will continue to monitor.
[2019-09-30 07:16] LABS: BASO % 0.5 % (0.0-2.0); EOS # 0.3 (0.0-0.7); EOS % 5.8 % (0-4.0); GRAN # 4.1 (1.4-6.5); GRAN % 70.4 % (42.2-75.2); LYMPH # 0.8 (1.2-3.4); LYMPH % 13.6 % (20.0-51.0); MEAN CELL VOLUME 102 fl (80.0-100.0); MEAN CORPUSCULAR HGB CONC 30 g/dl (33.0-37.0); MEAN PLATELET VOLUME 10.7 fl (7.4-10.4); MONO # 0.5 (0.1-0.6); MONO % 9.2 % (1.7-9.3); PLATELET COUNT 234 K/mm3 (130-400); RED BLOOD COUNT 3.02 M/mm3 (4.20-5.60); REDCELL DISTRIBUTION WIDTH-CV 16.5 % (11.5-14.5)
[2019-09-30 07:23] LABS: ALBUMIN 3.5 gm/dL (3.5-5.0); CALCIUM 9.1 mg/dL (8.4-10.2); CREATININE, serum 5.11 (0.66-1.25); PHOSPHOROUS 3.9 mg/dL (2.5-4.5); POTASSIUM 4.2 mmol/L (3.4-5.0)
[2019-09-30 07:36] LABS: INR 3.2 (0.8-3.0); PROTHROMBIN TIME 38.5 SECONDS (9.7-12.8)
[2019-09-30 07:45] LABS: HEMATOCRIT 30.7 % (42.0-52.0); HEMOGLOBIN 9.3 g/dl (13.5-18.0); MEAN CORPUSCULAR HEMOGLOBIN 31 pg (27.0-31.0)
[2019-09-30 07:59] VITALS: BP 133/51; PULSE 63; TEMP 98.2
--- NOTE | 2019-09-30 09:05 | NUR ---
Pt assessment complete. Pt is sitting up in bed eating breakfast, he is alert but oriented to self only. Pt denies any pain. Breathing is even and unlabored on 1L, O2 sat 96% taken off of O2, will continue to monitor. Pt denies N/V, eating and took pills without complications. Pt has no needs at this time. Call light within reach.
[2019-09-30 11:48] VITALS: BP 135/65; PULSE 76; TEMP 97.9
[2019-09-30 15:38] VITALS: BP 128/53; PULSE 67; TEMP 97.9
--- NOTE | 2019-09-30 18:52 | NUR ---
Pt had uneventful day. He denied any pain. Remained confused. Pt's appetite has improved, eating better. Repositioning provided. Pt's at bedside feeding patient, report given to SHAVON Ambriz.
[2019-09-30 19:50] VITALS: BP 133/51; PULSE 80; TEMP 98.3
--- NOTE | 2019-09-30 21:00 | NUR ---
Patient report received from Leticia Siddiqui at bedside during shift change. Patient is in droplet precautions for RSV. Upon assessment at this time patient is asleep, but arouses easily. Denies pain, n/v or SOB. Patient is on 1.0 L oxygen. Patient is alert but not oriented entirely. Left forearm Fistula with + thrill and bruit. No other needs reported/observed.
[2019-09-30 23:27] VITALS: BP 123/54; PULSE 73; TEMP 97.9
--- NOTE | 2019-10-01 02:56 | NUR ---
Patient asleep, respirations adequate. No needs observed.
[2019-10-01 03:23] VITALS: BP 134/57; PULSE 71; TEMP 98
[2019-10-01 07:17] VITALS: BP 118/49; PULSE 64; TEMP 97.6
--- NOTE | 2019-10-01 11:04 | NUR ---
Pt awake and alert upon entry, some confusion noted during conversation, no C/O pain at this time, shift assessments complete, left Pt call light in reach, bed in lowest position.
[2019-10-01 11:28] VITALS: BP 129/62; PULSE 70; TEMP 98
--- NOTE | 2019-10-01 14:03 | NUR ---
The patient is to discharge today, 10/01, back to [facility] for a skilled stay. Transportation was scheduled for around 1530, via [facility]. SWAPNIL informed the patient's RN and his (Kathy) via phone. They were both in agreeance to the time. SWAPNIL also explained the IM form to Kathy, via phone. [place] gave SW her verbal consent. No additional needs at this time.
[2019-10-01 15:45] VITALS: BP 129/62; PULSE 70; TEMP 98
[2019-10-01 15:49] VITALS: BP 129/62; PULSE 70; TEMP 98
--- NOTE | 2019-10-01 15:59 | NUR ---
Pt transferred to [facility], picked up and transported via [facility] transportation.
== END 2019-10-01 16:00 | DRG 193 ==
LOC: COL.ER 04:28 → MEDICAL 06:46
PROVIDERS: Emergency Medicine; ADMIT Internal Medicine Nephrology
PROC: 5A1D70Z Performance of Urinary Filtration, Intermittent, Less than 6 Hours Per Day (ICD-10-PCS; principal; 2019-09-24)
DX: J12.1 Respiratory syncytial virus pneumonia (principal); N18.6 End stage renal disease; I12.0 Hypertensive chronic kidney disease with stage 5 chronic kidney disease or end stage renal disease; D68.9 Coagulation defect, unspecified; E11.22 Type 2 diabetes mellitus with diabetic chronic kidney disease; E78.5 Hyperlipidemia, unspecified; E03.9 Hypothyroidism, unspecified; F03.90 Unspecified dementia, unspecified severity, without behavioral disturbance, psychotic disturbance, mood disturbance, and anxiety; E83.39 Other disorders of phosphorus metabolism; F12.90 Cannabis use, unspecified, uncomplicated; E87.5 Hyperkalemia; D63.1 Anemia in chronic kidney disease; N40.0 Benign prostatic hyperplasia without lower urinary tract symptoms; E66.9 Obesity, unspecified; M19.90 Unspecified osteoarthritis, unspecified site; E11.649 Type 2 diabetes mellitus with hypoglycemia without coma; Z99.2 Dependence on renal dialysis; Z86.718 Personal history of other venous thrombosis and embolism; Z79.01 Long term (current) use of anticoagulants; Z79.4 Long term (current) use of insulin; Z79.891 Long term (current) use of opiate analgesic; Z87.891 Personal history of nicotine dependence
CPT/HCPCS: A4216; J0456; J0696; J1644; J1815; J7030; J7050; Q5105

== ENCOUNTER → 2020-01-01 | Outpatient (CLI) | payer MEDICARE, OTHER, MEDICAID ==
[~2020-01-01] MED LIST changes: +DOXYCYCLINE HY100 MG PO; +EXPECTORANT DM120 ML PO; +NOVOLOG 100U100 U/M1 SQ
== END ==
LOC: ZCOL.LAB 15:04
DX: Z11.59 Encounter for screening for other viral diseases (principal); N18.6 End stage renal disease

== ENCOUNTER → 2020-05-08 | Outpatient (CLI) | payer MEDICARE, OTHER, MEDICAID ==
[2020-05-08 19:29] LABS: BASO % 0.5 % (0.0-2.0); EOS # 0.5 (0.0-0.7); EOS % 6.3 % (0-4.0); GRAN # 5.7 (1.4-6.5); GRAN % 73.4 % (42.2-75.2); HEMOGLOBIN 10.8 g/dl (13.5-18.0); LYMPH # 0.7 (1.2-3.4); LYMPH % 8.5 % (20.0-51.0); MEAN CELL VOLUME 104 fl (80.0-100.0); MEAN CORPUSCULAR HEMOGLOBIN 33 pg (27.0-31.0); MEAN CORPUSCULAR HGB CONC 32 g/dl (33.0-37.0); MEAN PLATELET VOLUME 10.3 fl (7.4-10.4); MONO # 0.8 (0.1-0.6); MONO % 10.7 % (1.7-9.3); PLATELET COUNT 227 K/mm3 (130-400); RED BLOOD COUNT 3.25 M/mm3 (4.20-5.60); REDCELL DISTRIBUTION WIDTH-CV 14.8 % (11.5-14.5)
[2020-05-08 19:43] LABS: HEMATOCRIT 33.8 % (42.0-52.0)
== END ==
LOC: ZCOL.LAB 18:34
DX: Z51.81 Encounter for therapeutic drug level monitoring (principal); R68.89 Other general symptoms and signs

== ENCOUNTER → 2020-07-21 | Outpatient (CLI) | payer MEDICARE, OTHER, MEDICAID ==
[~2020-07-21] MED LIST changes: +COMBIRESP IH; +DEPAKOTE 125MG125 M1 PO; +LEVEMIR100 U/ML SQ; +NAMENDA5 MG PO; +RENVELA800 MG PO; +VOLTAREN GEL 1%1 TU TP
[2020-07-21 12:45] LABS: VALPROIC ACID (DEPAKENE) 12.6 ug/mL (50.0-100.0)
[2020-07-21 13:05] LABS: THYROID STIMULATING HORMONE 2.92 uIU/mL (0.465-4.680)
== END ==
LOC: ZLAB.STJ 10:53
PROVIDERS: Family Medicine
DX: E11.9 Type 2 diabetes mellitus without complications (principal); E03.9 Hypothyroidism, unspecified

== ENCOUNTER 2020-08-12 06:18 | Outpatient (CLI) | payer MEDICARE, OTHER, MEDICAID ==
[2020-08-12] VITALS (9 sets, daily range): BP systolic 116–155; BP diastolic 63–82; PULSE 67–80; TEMP 97.5
[~2020-08-12] VITALS: Ht 170.2 cm; Wt 95.0 kg
[2020-08-12 08:35] LABS: PROTHROMBIN TIME 11.2 SECONDS (9.7-12.8)
--- NOTE | 2020-08-12 09:04 | NUR ---
SEE MERGE DOCUMENTATION FOR MEDICATION ADMINISTRATION TIMES AND INTRA/POST PROCEDURE SEDATION ASSESSMENTS.
--- NOTE | 2020-08-12 10:00 | NUR ---
Pt is back from laborer plumbing. pt is pwd with reg and unlabored resps, gcs 14 at baseline. bandaid to puncture site to fistula, no bleeding or hematoma noted.
--- NOTE | 2020-08-12 12:15 | NUR ---
Pt is ready for departure at this time. puncture to left fistula still looks good. Dr. Rodriguez evaluated fistula amd puncture site prior to his discharge. IV is dc'd cath intact dressing applied. written dc instructions were printed and sent with pt in folder. Pt escorted to exit via wheelchair.
== END 2020-08-12 12:30 ==
LOC: COL.CAR 06:18
PROVIDERS: Radiology Diagnostic Radiology
DX: T82.858A Stenosis of other vascular prosthetic devices, implants and grafts, initial encounter (principal); E11.22 Type 2 diabetes mellitus with diabetic chronic kidney disease; N18.9 Chronic kidney disease, unspecified; F03.90 Unspecified dementia, unspecified severity, without behavioral disturbance, psychotic disturbance, mood disturbance, and anxiety; Z85.51 Personal history of malignant neoplasm of bladder; I25.2 Old myocardial infarction; Z88.1 Allergy status to other antibiotic agents; Z79.4 Long term (current) use of insulin; Z79.899 Other long term (current) drug therapy; Z87.891 Personal history of nicotine dependence
CPT/HCPCS: J1200; J1644; J7050; Q9967

== ENCOUNTER 2020-08-18 09:40 | Outpatient (CLI) | payer MEDICARE, OTHER, MEDICAID ==
--- NOTE | 2020-08-18 10:00 | NUR ---
pt arrived from [facility] via w/c, taken to rm 12. Pt was asked if he ate breakfast, stated yes at 0800, called Nursing facility and confirmed pt had dumont and eggs at 0800. Spoke with Dr Magaña, pt is rescheduled for Wed arrival time at 0815, procedure time at 0945, Facility called, spoke with Ernie on inst. for NPO, insulin, and meds not to be given wed am, also sent home inst. sheet with pt, pt was discharged from at 1045 for sweet pickle maker from [facility]
== END 2020-08-18 10:04 ==
LOC: COL.RAD 09:40
DX: I35.0 Nonrheumatic aortic (valve) stenosis (principal)
CPT/HCPCS: J2704

== ENCOUNTER → 2020-08-22 | Outpatient (CLI) | payer MEDICARE, OTHER, MEDICAID ==
[2020-08-22 14:33] LABS: PROTHROMBIN TIME 10.9 SECONDS (9.7-12.8)
== END ==
LOC: ZCOL.LAB 13:54
PROVIDERS: Family Medicine
DX: Z86.73 Personal history of transient ischemic attack (TIA), and cerebral infarction without residual deficits (principal)

== ENCOUNTER → 2020-08-28 | Outpatient (CLI) | payer MEDICARE, OTHER, MEDICAID ==
[2020-08-28 11:55] LABS: INR 1.9 (0.8-3.0); PROTHROMBIN TIME 21.2 SECONDS (9.7-12.8)
== END ==
LOC: ZLAB.STJ 11:44
PROVIDERS: Family Medicine
DX: Z86.718 Personal history of other venous thrombosis and embolism (principal)

== ENCOUNTER 2020-09-03 12:50 | Emergency (ER) | payer MEDICARE, OTHER, MEDICAID ==
[~2020-09-03] VITALS: Ht 175.3 cm; Wt 86.4 kg
[2020-09-03 12:52] VITALS: TEMP 98.2
[2020-09-03 13:16] LABS: BASO # 0.1 (0.0-0.2); BASO % 0.7 % (0.0-2.0); EOS # 0.5 (0.0-0.7); EOS % 7.6 % (0-4.0); GRAN # 4.7 (1.4-6.5); GRAN % 69.8 % (42.2-75.2); HEMATOCRIT 38.3 % (42.0-52.0); HEMOGLOBIN 12.3 g/dl (13.5-18.0); LYMPH # 0.9 (1.2-3.4); LYMPH % 13.4 % (20.0-51.0); MEAN CELL VOLUME 106 fl (80.0-100.0); MEAN CORPUSCULAR HEMOGLOBIN 34 pg (27.0-31.0); MEAN CORPUSCULAR HGB CONC 32 g/dl (33.0-37.0); MEAN PLATELET VOLUME 10.4 fl (7.4-10.4); MONO # 0.6 (0.1-0.6); MONO % 8.2 % (1.7-9.3); PLATELET COUNT 168 K/mm3 (130-400); RED BLOOD COUNT 3.62 M/mm3 (4.20-5.60); REDCELL DISTRIBUTION WIDTH-CV 14.6 % (11.5-14.5)
[2020-09-03 13:20] LABS: INR 2.4 (0.8-3.0); PROTHROMBIN TIME 26.9 SECONDS (9.7-12.8)
[2020-09-03 13:23] LABS: PARTIAL THROMBOPLASTIN TIME 60.9 SECONDS (26.0-37.0)
[2020-09-03 13:27] LABS: BILIRUBIN,TOTAL 0.6 mg/dL (0.0-1.0); CALCIUM 9.3 mg/dL (8.4-10.2); CREATININE, serum 5.02 (0.66-1.25); POTASSIUM 4.1 mmol/L (3.4-5.0); TOTAL PROTEIN 7.4 gm/dL (6.4-8.2)
[2020-09-03 13:53] LABS: TROPONIN-I 0.045 ng/mL (0.000-0.035)
[2020-09-03 13:58] LABS: THYROID STIMULATING HORMONE 0.442 uIU/mL (0.465-4.680)
[2020-09-03 17:45] VITALS: BP 119/67; PULSE 70
== END 2020-09-03 18:15 ==
LOC: COL.ER 12:50
PROVIDERS: Emergency Medicine
DX: E16.2 Hypoglycemia, unspecified (principal); R00.1 Bradycardia, unspecified; N18.6 End stage renal disease; I25.2 Old myocardial infarction; F03.90 Unspecified dementia, unspecified severity, without behavioral disturbance, psychotic disturbance, mood disturbance, and anxiety; Z99.2 Dependence on renal dialysis; Z88.1 Allergy status to other antibiotic agents; Z79.4 Long term (current) use of insulin

== ENCOUNTER → 2020-10-01 | Outpatient (CLI) | payer MEDICARE, OTHER, MEDICAID ==
[2020-10-01 18:19] LABS: ALBUMIN 3.1 gm/dL (3.5-5.0); BASO % 0.5 % (0.0-2.0); BILIRUBIN,TOTAL 0.5 mg/dL (0.0-1.0); CALCIUM 8.3 mg/dL (8.4-10.2); CHOLESTEROL RISK RATIO 2.7; CREATININE, serum 7.34 (0.66-1.25); EOS # 0.2 (0.0-0.7); EOS % 2.6 % (0-4.0); GRAN # 4.2 (1.4-6.5); GRAN % 63.9 % (42.2-75.2); HEMOGLOBIN 10.5 g/dl (13.5-18.0); LYMPH # 1.6 (1.2-3.4); LYMPH % 24.4 % (20.0-51.0); MEAN CELL VOLUME 107 fl (80.0-100.0); MEAN CORPUSCULAR HEMOGLOBIN 34 pg (27.0-31.0); MEAN CORPUSCULAR HGB CONC 32 g/dl (33.0-37.0); MEAN PLATELET VOLUME 10.5 fl (7.4-10.4); MONO # 0.5 (0.1-0.6); MONO % 7.8 % (1.7-9.3); PLATELET COUNT 180 K/mm3 (130-400); POTASSIUM 5.2 mmol/L (3.4-5.0); RED BLOOD COUNT 3.09 M/mm3 (4.20-5.60); REDCELL DISTRIBUTION WIDTH-CV 14.7 % (11.5-14.5)
[2020-10-01 18:47] LABS: VALPROIC ACID (DEPAKENE) 10.8 ug/mL (50.0-100.0)
[2020-10-01 18:49] LABS: THYROID STIMULATING HORMONE 2.7 uIU/mL (0.465-4.680)
== END ==
LOC: ZCOL.LAB 17:40
PROVIDERS: Family Medicine
DX: Z51.81 Encounter for therapeutic drug level monitoring (principal); E78.5 Hyperlipidemia, unspecified; E03.9 Hypothyroidism, unspecified; I10 Essential (primary) hypertension; D63.1 Anemia in chronic kidney disease

== ENCOUNTER 2020-11-15 16:11 | Emergency (ER) | payer MEDICARE, OTHER, MEDICAID ==
[~2020-11-15] VITALS: Ht 175.3 cm; Wt 86.4 kg
[2020-11-15 16:21] VITALS: BP 0/0; PULSE 0; TEMP 98.3
== END 2020-11-15 16:21 | disposition expired ==
LOC: COL.ER 16:11
DX: I46.9 Cardiac arrest, cause unspecified (principal); I13.10 Hypertensive heart and chronic kidney disease without heart failure, with stage 1 through stage 4 chronic kidney disease, or unspecified chronic kidney disease; J44.9 Chronic obstructive pulmonary disease, unspecified; E03.9 Hypothyroidism, unspecified; F03.90 Unspecified dementia, unspecified severity, without behavioral disturbance, psychotic disturbance, mood disturbance, and anxiety; E11.9 Type 2 diabetes mellitus without complications; I25.2 Old myocardial infarction; N18.9 Chronic kidney disease, unspecified; Z99.2 Dependence on renal dialysis; Z88.1 Allergy status to other antibiotic agents; Z79.890 Hormone replacement therapy; Z79.4 Long term (current) use of insulin
CPT/HCPCS: J0171; J0282; J7060